=== PATIENT | female | born 1970 | race Hispanic/Latino ===

== ENCOUNTER 2024-01-06 09:40 | Observation (INO) | payer OTHER ==
[2024-01-06] MEDS ORDERED: ASPIRIN 81 MG CHEWABLE TABLET ONE (10:50)
[2024-01-06 10:58] LABS: Absolute Eosinophils 0.1 K/uL (0-0.5); Absolute Lymphocytes (CBC) 1.8 K/uL (0.7-4.9); Absolute Monocytes 0.5 K/uL (0.1-1.3); Absolute Neutrophil 3.5 K/uL (1.8-8.0); Basophils % 0.7 % (0-1.3); Eosinophils % 1.5 % (0-4.4); Hematocrit 41.4 % (36.0-45.0); Hemoglobin 13.9 g/dL (12.0-15.0); MCH 29.5 pg (27.0-35.0); MCHC 33.6 g/dL (32.0-36.0); MPV 8.4 fL (7.6-11.3); Monocytes % 7.9 % (3.3-12.3); Neutrophils % 59.9 % (41.7-73.7); Platelets 246 thou/uL (152-406); Red Cell Distribution Width 13.6 % (12.1-15.2)
--- NOTE | 2024-01-06 11:01 | RAD REPORT ---
EXAM DESCRIPTION: RAD - Chest Single View - 01/06/2024 10:52 am CLINICAL HISTORY: CHEST PAIN Chest pain. COMPARISON: No comparisons FINDINGS: Portable technique limits examination quality. The lungs are grossly clear. The heart is normal in size. No displaced fractures. IMPRESSION: No acute intrathoracic process suspected.
[2024-01-06 11:18] LABS: Albumin 3.7 g/dL (3.4-5.0); Albumin/Globulin Ratio 0.9 (1.1-1.8); Anion Gap 9.8 mEq/L (5.0-15.0); Bilirubin Direct 0.1 mg/dL (0-0.2); Bilirubin Indirect, Calculated 0.4 mg/dL (0.2-0.8); Bilirubin Total 0.5 mg/dL (0.2-1.0); Globulin 4.1 g/dL (2.3-3.5); Magnesium 2.4 mg/dL (1.6-2.4); Potassium 3.8 mEq/L (3.5-5.1); Protein, Total 7.8 g/dL (6.4-8.2)
--- NOTE | 2024-01-06 11:43 | ER ---
Nurse's Notes [facility] Name: Tanya Bradford Age: 53 yrs Sex: Female : 1970 Arrival Date: 01/06/2024 Time: 09:40 Bed 14 Private MD: Modesto Ramirez Diagnosis: Chest pain, unspecified Presentation: 01/05 09:59 Chief complaint: Patient states: L sided CP and SOB began yesterday. Coronavirus ll1 screen: Client denies travel out of the [place] in the last 14 days. difficulty breathing, shortness of breath, Client presents with at least one sign or symptom that may indicate coronavirus-19. Standard/surgical mask placed on the client. Ebola Screen: Patient denies travel to an Ebola-affected area in the 21 days before illness onset. Initial Sepsis Screen: Does the patient meet any 2 criteria? No. Patient's initial sepsis screen is negative. Does the patient have a suspected source of infection? No. Patient's initial sepsis screen is negative. Risk Assessment: Do you want to hurt yourself or someone else? Patient reports no desire to harm self or others. Onset of symptoms was January 05, 2024. 09:59 Method Of Arrival: Ambulatory ll1 09:59 Acuity: NAMRATA 3 ll1 Triage Assessment: 10:00 General: Appears uncomfortable, Behavior is calm, cooperative, appropriate for age. ll1 Pain: Complains of pain in L CP Pain currently is 9 out of 10 on a pain scale. Quality of pain is described as aching, pressure. Cardiovascular: Reports chest pain, shortness of breath. Respiratory: Reports shortness of breath. 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 - Infectious Disease History:: Denies. CDIFF, C. Auris, ESBL, MRSA (w/in 1 year), VRE (w/in 1 year), TB, . - Social history:: Smoking status: Patient denies any tobacco usage or history of. - History obtained from: son. Screenin:02 [facility] ED Fall Risk Assessment (Adult) History of falling in the last 3 months, cp4 including since admission No falls in past 3 months (0 pts) Confusion or Disorientation No (0 pts) Intoxicated or Sedated No (0 pts) Impaired Gait No (0 pts) Mobility Assist Device Used No (0 pt) Altered Elimination No (0 pt) Score/Fall Risk Level 0 - 2 = Low Risk. 15:35 Abuse screen: Denies threats or abuse. Nutritional screening: No deficits noted. cp4 Tuberculosis screening: No symptoms or risk factors identified. Assessment: 11:01 General: Appears uncomfortable, Behavior is calm, cooperative, appropriate for age. cp4 Pain: Pain does not radiate. Pain began. 11:02 Pain: Pain began 1 day ago. cp4 Vital Signs: 09:59 BP 146 / 87; Pulse 99; Resp 18; Temp 97.3; Pulse Ox 96% on R/A; Weight 65.32 kg; Height ll1 5 ft. 1 in. ; Pain 9/10; 11:00 BP 105 / 82; Pulse 90; Resp 18; Pulse Ox 95% ; cp4 12:00 BP 112 / 85; Pulse 92; Resp 18; Pulse Ox 97% ; cp4 13:00 BP 140 / 90; Pulse 97; Resp 18; Pulse Ox 95% ; ld1 14:00 BP 132 / 83; Pulse 97; Resp 18; Pulse Ox 95% ; cp4 09:59 Body Mass Index 27.21 (65.32 kg, 154.94 cm) ll1 09:59 Pain Scale: Adult ll1 ED Course: 09:42 Patient arrived in ED. rg4 09:42 Modesto Ramirez MD is Private Physician. rg4 09:43 Arm band placed on Patient placed in an exam room, on a stretcher. ll1 09:44 Joey Gordon is Attending Physician. ci 10:00 Triage completed. ll1 10:03 Janet Wan is Primary Nurse. cp4 10:30 Inserted saline lock: 22 gauge in right forearm, using aseptic technique. Blood ld1 collected. 10:33 D-Dimer Sent. cp4 10:34 Basic Metabolic Panel Sent. cp4 10:34 CBC with Diff Sent. cp4 10:34 LFT's Sent. cp4 10:34 Magnesium Sent. cp4 10:34 NT PRO-BNP Sent. cp4 10:34 Troponin HS Sent. cp4 10:54 XRAY Chest (1 view) In Process Unspecified. EDMS 11:42 Clint Cuevas MD is Hospitalizing Provider. ci 15:35 Placed in gown. Bed in low position. Call light in reach. Side rails up X2. Provided cp4 Education on: chest pain and admission. Client placed on continuous cardiac and pulse oximetry monitoring. NIBP monitoring applied. youth nutritional monitor on. 15:35 No provider procedures requiring assistance completed. Patient admitted, IV remains in cp4 place. O2 via room air. Administered Medications: 10:53 Drug: Aspirin PO Chewable Tablet 324 mg PO once; 81 mg tablets x 4 Route: PO; cp4 12:57 Follow up: Response: No adverse reaction cp4 Medication: 11:02 VIS not applicable for this client. cp4 Outcome: 11:43 Decision to Hospitalize by Provider. ci 15:35 Admitted to Tele accompanied by tech, via wheelchair, with chart, cp4 15:35 Condition: stable 15:35 Instructed on the need for admit, Demonstrated understanding of instructions, follow-up care, 15:38 Patient left the ED. cp4 Signatures: Dispatcher [employer] EDNE Katherine Valdovinos rg4 Luigi Peacock RN RN ll1 Keyonna Yeboah RN RN ld1 Janet Wan cp4 Joey Gordon ci Corrections: (The following items were deleted from the chart) 14:45 13:00 BP 132 / 83; Pulse 97bpm; Resp 18bpm; Pulse Ox 95%; ld1 ld1
--- NOTE | 2024-01-06 11:43 | EDPHYS ---
Physician Documentation [facility] Name: Tanya Bradford Age: 53 yrs Sex: Female : 1970 Arrival Date: 01/06/2024 Time: 09:40 Bed 14 Private MD: Modesto Ramirez ED Physician Joey Gordon HPI: 01/05 10:05 This 53 yrs old Female presents to ER via Ambulatory with complaints of Chest ci Pain, Shortness Of Breath. 10:05 Patient is a 53-year-old female with PMH hypertension, DM 2, hyperlipidemia who ci presents to the ED with chief complaint of left sided chest pain that began yesterday. Pain was initially intermittent but she woke up this morning and pain has been constant. Pain is stabbing, radiates into the left fingers worse when she takes a deep breath. Patient went to her primary care doctor's office yesterday and had a stress test and was told to go to the ER due to concerns of blockage in her heart but patient went home. Endorses shortness of breath. No associated diaphoresis, nausea/vomiting.. 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 - Infectious Disease History:: Denies. CDIFF, C. Auris, ESBL, MRSA (w/in 1 year), VRE (w/in 1 year), TB, . - Social history:: Smoking status: Patient denies any tobacco usage or history of. - History obtained from: son. ROS: 10:05 Constitutional: Negative for fever, chills, and weight loss, ci 10:05 Cardiovascular: Positive for chest pain, Negative for edema, orthopnea, palpitations, 10:05 Respiratory: Positive for shortness of breath, Negative for cough, dyspnea on exertion, wheezing, 10:05 Abdomen/GI: Negative for abdominal pain, nausea, vomiting, and diarrhea, Exam: 10:05 Constitutional: This is a well developed, well nourished patient who is awake, alert, ci and in no acute distress. Head/Face: Normocephalic, atraumatic. Eyes: Pupils equal round and reactive to light, extra-ocular motions intact. Lids and lashes normal. Conjunctiva and sclera are non-icteric and not injected. Cornea within normal limits. Periorbital areas with no swelling, redness, or edema. ENT: Nares patent. No nasal discharge, no septal abnormalities noted. Tympanic membranes are normal and external auditory canals are clear. Oropharynx with no redness, swelling, or masses, exudates, or evidence of obstruction, uvula midline. Mucous membranes moist. Neck: Trachea midline, no thyromegaly or masses palpated, and no cervical lymphadenopathy. Supple, full range of motion without nuchal rigidity, or vertebral point tenderness. No Meningismus. Chest/axilla: Normal chest wall appearance and motion. Nontender with no deformity. No lesions are appreciated. Cardiovascular: Regular rate and rhythm with a normal S1 and S2. No gallops, murmurs, or rubs. Normal PMI, no JVD. No pulse deficits. Respiratory: Lungs have equal breath sounds bilaterally, clear to auscultation and percussion. No rales, rhonchi or wheezes noted. No increased work of breathing, no retractions or nasal flaring. Abdomen/GI: Soft, non-tender, with normal bowel sounds. No distension or tympany. No guarding or rebound. No evidence of tenderness throughout. Back: No spinal tenderness. No costovertebral tenderness. Full range of motion. Skin: Warm, dry with normal turgor. Normal color with no rashes, no lesions, and no evidence of cellulitis. MS/ Extremity: Pulses equal, no cyanosis. Neurovascular intact. Full, normal range of motion. Neuro: Awake and alert, GCS 15, oriented to person, place, time, and situation. Cranial nerves II-XII grossly intact. Motor strength 5/5 in all extremities. Sensory grossly intact. Cerebellar exam normal. Normal gait. Psych: Awake, alert, with orientation to person, place and time. Behavior, mood, and affect are within normal limits. 10:05 ECG was reviewed by the Attending Physician. ci Vital Signs: 09:59 BP 146 / 87; Pulse 99; Resp 18; Temp 97.3; Pulse Ox 96% on R/A; Weight 65.32 kg; Height ll1 5 ft. 1 in. ; Pain 9/10; 11:00 BP 105 / 82; Pulse 90; Resp 18; Pulse Ox 95% ; cp4 12:00 BP 112 / 85; Pulse 92; Resp 18; Pulse Ox 97% ; cp4 13:00 BP 140 / 90; Pulse 97; Resp 18; Pulse Ox 95% ; ld1 14:00 BP 132 / 83; Pulse 97; Resp 18; Pulse Ox 95% ; cp4 09:59 Body Mass Index 27.21 (65.32 kg, 154.94 cm) ll1 09:59 Pain Scale: Adult ll1 MDM: 09:44 Patient medically screened. ci 10:12 HEART Score: History: Moderately Suspicious (1), ECG: Non specific repolarization ci disturbance / LBTB / PM (1), Age: > 45 and < 65 years (1), Risk Factors: > or = 3 Risk factors for atherosclerotic disease (2), [Hypercholesterolemia] [Hypertension] [DM] Troponin: < or = 1 x Normal Limit (0), Total Score = 4. The patient was given aspirin in the Emergency Department. Data reviewed: vital signs, nurses notes, old medical records. Historians other than the Patient: Daughter/Son: . Care significantly affected by the following chronic conditions: Diabetes, Hypertension. ED course: Patient presents for evaluation of chest pain x 1 day. Patient reportedly failed a stress test yesterday at PCPs office. Her chest pain is somewhat pleuritic, will check a dimer. Her EKG shows normal sinus rhythm with mild ST depression in lead I. Patient has no pulsatile neurodeficits, low suspicion for aortic dissection. She denies prolonged immobility, recent surgery but has had a blood clot 2 years ago.. 10:12 Differential diagnosis: abnormal EKG, acute myocardial infarction, coronary artery ci disease congestive heart failure costochondritis, gastroesophageal reflux disease (GERD), myocarditis, pneumonia, pneumothorax, pulmonary embolus, stable angina, unstable angina. 11:40 ED course: Labs reviewed, BNP 474, glucose 367, patient has no anion gap, bicarb within ci normal limit, low suspicion for DKA. High sensitive troponin negative however story concerning for cardiac chest pain. Will admit for further management. I discussed case with admitting physician who accepted patient for admission.. 01/05 10:05 Order name: Basic Metabolic Panel; Complete Time: 11:35 ci 01/05 10:05 Order name: CBC with Diff; Complete Time: 11:03 ci 01/05 10:05 Order name: LFT's; Complete Time: 11:35 ci 01/05 10:05 Order name: Magnesium; Complete Time: 11:35 ci 01/05 10:05 Order name: NT PRO-BNP; Complete Time: 11:35 ci 01/05 11:35 Interpretation: NT PRO-BNP 474. ci 01/05 10:05 Order name: Troponin HS; Complete Time: 11:35 ci 01/05 10:11 Order name: D-Dimer ci 01/05 12:02 Order name: Troponin High Sensitivity EDMS 01/05 12:02 Order name: Troponin High Sensitivity EDMS 01/05 12:02 Order name: Troponin High Sensitivity EDMS 01/05 10:05 Order name: XRAY Chest (1 view); Complete Time: 11:03 ci 01/05 10:11 Order name: EKG; Complete Time: 10:12 ci 01/05 10:05 Order name: Cardiac monitoring; Complete Time: 10:11 ci 01/05 10:05 Order name: EKG - Nurse/Tech; Complete Time: 10:11 ci 01/05 10:05 Order name: IV Saline Lock; Complete Time: 10:11 ci 01/05 10:05 Order name: Labs collected and sent; Complete Time: 10:33 ci 01/05 10:05 Order name: O2 Per Protocol; Complete Time: 10:12 ci 01/05 10:05 Order name: O2 Sat Monitoring; Complete Time: 10:13 ci EC:05 Rate is 97 beats/min. Rhythm is regular. QRS [place] is Normal. [place] interval is normal. ST ci Segment is depressed in lead I. Clinical impression: NSR w/ Non-specific ST/T Changes. Administered Medications: 10:53 Drug: Aspirin PO Chewable Tablet 324 mg PO once; 81 mg tablets x 4 Route: PO; cp4 12:57 Follow up: Response: No adverse reaction cp4 Disposition Summary: 01/06/24 11:43 Hospitalization Ordered Notes: Hospitalization Status: Observation ci Provider: Clint Cuevas Location: Telemetry/MedSurg (observation) ci Condition: Stable ci Problem: new ci Symptoms: are unchanged ci Bed/Room Type: Standard ci Room Assignment: 419(01/06/24 14:38) em1 Diagnosis - Chest pain, unspecified ci Forms: - Medication Reconciliation Form ci - SBAR form ci - Leadership Thank You Letter ci Signatures: Dispatcher [employer] EDMS Ulices Baptiste em1 Luigi Peacock, RN RN 1 Janet Wan cp4 Joey Gordon Corrections: (The following items were deleted from the chart) 10:05 10:05 Chest Single View+RAD.RAD.BRZ ordered. EDMS EDMS 10:14 10:12 Chest Single View+RAD.RAD.BRZ ordered. EDMS EDMS 13:56 11:43 ci em1 14:09 13:56 205 em1 em1 14:38 14:09 em1 em1
--- NOTE | 2024-01-06 15:24 | P.HP ---
Certification for Inpatient Patient admitted to: Observation With expected LOS: <2 Midnights Patient will require the following post-hospital care: None Practitioner: I am a practitioner with admitting privileges, knowledge of patient current condition, hospital course, and medical plan of care. Services: Services provided to patient in accordance with Admission requirements found in Title 42 Section 412.3 of the Code of Federal Regulations Patient History Date of Service: 01/06/24 Reason for admission: Chest pain, abnormal stress History of Present Illness: 53-year-old female with history of hypertension, gnx-qsongqz-yqhgyibby diabetes, hyperlipidemia and anxiety presents emergency department chief complaint of chest pain. She reports that she was seen by her primary care doctor yesterday on 01/04 and had an outpatient stress test which she was told was abnormal. She was instructed to come to the hospital for further evaluation. She was evaluated in the emergency department her initial high sensitive troponin was normal and her EKG was without STEMI criteria. Patient will be admitted under observation for ACS rule out. - Past Medical/Surgical History -: Hypertension -: Hyperlipidemia -: Diabetes mellitus type [id number]-xpmohiamb -: Anxiety -: Cholecystectomy Psychosocial/ Personal History: Is on disability, lives at home with her family - Family History Family History: Reviewed- Non-Contributory - Social History Alcohol use: No CD- Drugs: No Caffeine use: Yes Place of Residence: Home Review of Systems 10-point ROS is otherwise unremarkable Cardiovascular: Chest Pain, As per HPI Physical Examination - Physical Exam General: Alert, In no apparent distress, Oriented x3 HEENT: Atraumatic, PERRLA, EOMI Neck: Supple, 2+ carotid pulse no bruit, No LAD Respiratory: Clear to auscultation bilaterally, Normal air movement Cardiovascular: Regular rate/rhythm, Normal S1 S2 Gastrointestinal: Normal bowel sounds Musculoskeletal: No tenderness Integumentary: No rashes Neurological: Normal gait, Normal speech, Normal strength at 5/5 x4 extr, Normal tone - Studies Laboratory Data (last 24 hrs) 01/06/24 01/06/24 10:30 10:30 WBC 5.90 Hgb 13.9 Hct 41.4 Plt Count 246 Sodium 132 L Potassium 3.8 BUN 15 Creatinine 0.69 Glucose 367 H Magnesium 2.4 Total Bilirubin 0.5 AST 32 ALT 49 Alkaline Phosphatase 176 H Assessment and Plan - Plan Assessment: Chest pain rule out ACS-recent abnormal stress test Diabetes mellitus type 7tzs-meofhdl-zvivkpahv with hyperglycemia Hypertension Hyperlipidemia Anxiety Plan: Chest pain rule out ACS-recent abnormal stress test Cardiology consulted, notified N.p.o. after midnight Discussed with primary care doctor-reportedly had ST elevation in anterior leads during stress test Troponins negative thus far, will trend Monitor on telemetry Likely heart catheterization 01/06 Diabetes mellitus type [id number]-[id number]-xbcxkqfsr with hyperglycemia On metformin at home ACHS Accu-Chek, sliding insulin A1c in the morning Hypertension Hyperlipidemia Anxiety Continue home medications DVT PPX: Lovenox Code status: Full Discharge Plan: Home Plan to discharge in: 24 Hours - Advance Directives Does patient have a Living Will: No Does patient have a Durable POA for Healthcare: No - Code Status/Comfort Care Code Status Assessed: Yes (Full code) Critical Care: No Time Spent Managing Pts Care (In Minutes): 70
[2024-01-06] MEDS ORDERED: ONDANSETRON 4 MG/2 ML VIAL IV PRN (16:15)
[2024-01-06] MEDS: INSULIN REGULAR (HUMAN) 100 UNIT/ML SQ SCH (16:30)
[2024-01-06] MEDS: ENOXAPARIN 40 MG/0.4 ML SQ SCH (17:16)
[2024-01-06] MEDS: METOPROLOL XL 50 MG TAB PO SCH (17:16)
--- NOTE | 2024-01-06 18:46 | CON ---
Date of Consultation: 01/06/2024 Reason For Consultation: Chest pain and abnormal stress test. History Of Present Illness: 53-year-old female, history of hypertension, diabetes, dyslipidemia, pre sented with a complaint of chest pain, left-sided, pressure-like, radiates to the neck and left upper extremity, saw her primary care physician, had a stress test and she had significantly abnormal stre ss test. At the present time, there is no chest pain. Past Medical History: As outlined above in the HPI. Medications: Refer to reconciliation sheet for detailed list. Allergies: CODEINE AND ACETAMINOPHEN. Family History: No premature coronary artery disease or cancer. Social History: Does not smoke or drink. Does not use any drugs. Review of Systems: All systems reviewed and they were negative except as mentioned in HPI. Physical Examination: Vital Signs: Reviewed. Head and Neck: Pupils are equal, reactive to light. Intact eye movements. No JVD. No cervical lym phadenopathy. Neck is supple. Thyroid is not enlarged. Lungs: Clear to auscultation bilaterally. No rhonchi, wheezing, or crackles. No accessory muscles. Heart: Regular rate and rhythm. No extra sounds. Abdomen: Soft, nontender. Bowel sounds positive. No organomegaly. No masses or hernia. No rigidi ty or rebound. Extremities: No edema, clubbing, or cyanosis. Intact pulses. Skin: No rash or nodule. Neurologic: Alert, awake, oriented x3. No acute focal deficits appreciated. Investigations: BUN 15, creatinine 0.69, and troponins x4 were negative and hemoglobin is 13.9. Assessment And Recommendations: 1.Chest pain with abnormal stress test suggestive of unstable angina. Start baby aspirin. Keep NPO past midnight. Plan for coronary angiogram tomorrow. 2.Diabetes. Check sugars 3 times a day. Cover with the regular insulin per sliding scale. 3.Dyslipidemia. Recommend Lipitor to be continued at 40 mg q.h.s. 4.Hypertension. Blood pressure is controlled. SR/MODL Voice ID: [id number] Report ID: [id number]
[2024-01-06] MEDS: GABAPENTIN 300 MG CAP PO SCH (20:46)
[2024-01-06] MEDS: ATORVASTATIN 40 MG TAB PO SCH (20:46)
[2024-01-06] MEDS: AMITRIPTYLINE 25 MG TAB PO SCH (20:46)
[2024-01-06] MEDS: DOXEPIN HCL 10 MG CAP PO SCH (20:46)
[2024-01-07 04:14] LABS: Absolute Eosinophils 0.1 K/uL (0-0.5); Absolute Lymphocytes (CBC) 2.4 K/uL (0.7-4.9); Absolute Monocytes 0.7 K/uL (0.1-1.3); Absolute Neutrophil 2.2 K/uL (1.8-8.0); Basophils % 0.9 % (0-1.3); Eosinophils % 2.8 % (0-4.4); Hematocrit 38.7 % (36.0-45.0); Lymphocytes % 44.2 % (15.3-44.8); MCH 29.5 pg (27.0-35.0); MCHC 33.7 g/dL (32.0-36.0); MCV 87.5 fL (80-100); MPV 8.4 fL (7.6-11.3); Monocytes % 12.2 % (3.3-12.3); Neutrophils % 39.9 % (41.7-73.7); Platelets 230 thou/uL (152-406); RBC Red Blood Cell Count 4.43 M/uL (3.86-4.86); Red Cell Distribution Width 13.4 % (12.1-15.2)
[2024-01-07] MEDS: ASPIRIN EC 81 MG TAB PO ONE (04:29)
[2024-01-07] MEDS: ASPIRIN EC 81 MG TAB PO SCH (04:35)
[2024-01-07 04:38] LABS: Anion Gap 8.2 mEq/L (5.0-15.0); Potassium 3.2 mEq/L (3.5-5.1)
[2024-01-07] MEDS: PANTOPRAZOLE 40MG TABLET PO SCH (07:30)
[2024-01-07] MEDS: CLOPIDOGREL 75 MG TABLET PO SCH (08:29)
[2024-01-07] MEDS: POTASSIUM CL SA 10 MEQ TAB PO ONE (12:00)
--- NOTE | 2024-01-07 13:34 | P.PN ---
Date of Service: 01/07/24 Subjective: No further chest pain overnight no acute events overnight ROS: 10 point ROS as noted above, otherwise negative Physical exam GEN: Alert, oriented, NAD HEENT: Normal conjunctiva, sclera anicteric CV: Regular rate and rhythm, no edema Pulm: Nonlabored respirations on room air ABD: Soft, nontender, nondistended MSK: No joint tenderness Integumentary: No rashes Neuro: Normal speech, normal affect Vitals reviewed Assessment: Chest pain rule out ACS-recent abnormal stress test Diabetes mellitus type [id number]-flvtosy-evtskdycj with hyperglycemia Hypertension Hyperlipidemia Anxiety Plan: Chest pain rule out ACS-recent abnormal stress test Troponin trended negative/flat Heart cath today Discussed with primary care doctor-reportedly had ST elevation in anterior leads during stress test Monitor on telemetry await results from heart cath Diabetes mellitus type [id number]-kyziwyx-auerpghyp with hyperglycemia On metformin at home ACHS Accu-Chek, sliding insulin A1c 12.7 Further titration of antidiabetic agents by PCP Hypertension Hyperlipidemia Anxiety Continue home medications DVT PPX: Lovenox Code status: Punch Press Feeder Spent Managing Pts Care (In Minutes): 35
[2024-01-07] MEDS: NA CHLORIDE 0.9% 500 ML ONE (15:07)
[2024-01-07] MEDS ORDERED: MIDAZOLAM HCL 2 MG/2 ML INJ ONE (15:09)
[2024-01-07] MEDS ORDERED: FENTANYL CITR 100 MCG/2 ML ONE (15:09)
[2024-01-07] MEDS ORDERED: HEPA 1000U/500MLS 2,000 UNIT/1,000 ML BAG IV ONE (15:09)
[2024-01-07] MEDS ORDERED: LIDOCAINE 1% 20 ML MDV ONE (15:09)
[2024-01-07] MEDS ORDERED: VERAPAMIL HCL 10 MG/4 ML VIAL IV ONE (15:09)
[2024-01-07] MEDS ORDERED: CLOPIDOGREL 75 MG TABLET ONE (15:10)
[2024-01-07] MEDS ORDERED: HEPARIN 5000 UNIT/ML 1 ML VIAL ONE (15:10)
[2024-01-07] MEDS ORDERED: ATROPINE SULF 1 MG/10 ML SYR IV ONE (15:10)
[2024-01-07] MEDS ORDERED: HEPARIN 10,000 UNIT/10 ML VIAL IV ONE (15:10)
--- NOTE | 2024-01-07 17:49 | EKG ---
Test Date: 2024-01-06 Test Time: 09:52:38 Pot Filler: ILIAL MEASUREMENT RESULTS: Intervals: Rate: 97 RI: 120 QRSD: 80 QT: 350 QTc: 444 [place]: P: 54 RI: 120 QRS: 61 T: 54 INTERPRETIVE STATEMENTS: Normal sinus rhythm Normal ECG No previous ECG available for comparison Electronically Signed On 01-07-24 17:46:44 CDT by Israel Mulligan
[2024-01-07 20:15] VITALS: O2SAT 95
--- NOTE | 2024-01-07 20:57 | OP ---
Date of Procedure: 01/07/2024 Surgeon: JANIS ADLER Procedures Performed: 1.Selective coronary angiogram. 2.Left heart catheterization. 3.PCI of severe proximal to mid left circumflex stenosis, I used 2.25 x 38 mm Synergy drug-eluting s tent. Indication: Unstable angina. Access: Right femoral artery 6-Qatari closed with StarClose. Complications: None. Bleeding: Less than 50 mL. Anesthesia: Total sedation time was 1 hour. I used fentanyl and Versed. Description Of Procedure: After risks, benefits, and alternatives were explained, patient agreed to procedure and signed informed consent. The patient was brought into cardiac catheterization laborato , prepped and draped in the usual sterile fashion. Then, I tried to access right radial artery, bu t it was very small, so that access was abandoned. Then, I accessed the right common femoral artery using micropuncture kit, ultrasound guidance, fluoroscopy, placed 6-Qatari [place] sheath and took a 6-Qatari JL3 catheter into the aortic root, engaged the left main, took standard views, and exchange d for 6-Qatari 3DRC catheter, engaged the RCA, took standard views and the catheter was pushed over t he wire into the LV, measured the LVEDP. Pullback did not record any gradient. Then I removed the c atheter and exchanged for 6-Qatari EBU3.5 guide, engaged the left main, gave systemic heparin to assu re ACT level above 250, loaded with Plavix and aspirin and took a short Runthrough wire into the left circumflex, passing the area of stenosis and then using a 2.0 balloon, lesions were expanded very we ll and established good flow in the artery. Then, I placed a 2.25 x 38 mm Synergy drug-eluting stent across the long area of stenosis, excellent expansion, restoring excellent flow in the artery. Adwoa ent tolerated the procedure very well. Then, I removed the wire. Final angiogram was satisfactory. Then, I removed the guide and the sheath and the StarClose was used for closure with good hemostasis . Findings: 1.Left main; normal but small. 2.LAD; small vessel. She had normal proximal segment. In the mid segment, there are multiple areas ranging between 40% and 50%. Diagonal branches are very small with luminal irregularities. 3.Left circumflex; proximal to mid severe stenosis ranging between 90% to 99% on multiple locations, status post successful PCI as above. 4.RCA; it is dominant with proximal 50%, distal 50%, and diffuse 30% to 40% of the PLB and PDA. 5.Elevated LVEDP in the 25 mmHg range. Conclusions: 1.Severe left circumflex disease, which is the culprit for her symptoms, status post successful PCI. 2.Moderate coronary artery disease with diffusely small coronary arteries. Recommendations: Aspirin, Plavix, high-dose statin, and aggressive cardiac risk factor modification and diabetes control. SR/MODL Voice ID: [id number] Report ID: [id number]
--- NOTE | 2024-01-07 22:54 | PN ---
Date of Progress Note: 01/07/2024 Subjective: Seen by bedside. She continues to have chest pain with activities. No nausea, vomiting , diarrhea. No abdominal pain. No dysuria, polyuria, or urinary urgency. All other systems reviewe d, they are negative. Physical Examination: Vital Signs: Reviewed. Head and Neck: Pupils are equal, reactive to light. Intact eye movements. No JVD. No cervical lym phadenopathy. Neck is supple. Thyroid is not enlarged. Lungs: Clear to auscultation bilaterally. No rhonchi, wheezing, or crackles. No accessory muscle u se. Heart: Regular rate and rhythm. No extra sounds. Abdomen: Soft, nontender. Bowel sounds positive. No organomegaly. No masses or hernia. No rigidi ty or rebound. Extremities: No edema, clubbing, cyanosis. Intact pulses. Skin: No rash or nodule. Neuro: Alert, awake, oriented x3. No acute focal deficits appreciated. Investigations: Cardiac enzymes are negative. Assessment And Recommendation: 1.Unstable angina, status post coronary angiogram. Today, she had severe left circumflex stenosis, status post successful PCI. She has moderate coronary artery disease diffuse and small coronary [place]. Recommend aspirin and Plavix and high-dose statin. Aggressive cardiac risk factor modificatio n and good control of diabetes. 2.Diabetes. Check A1c and tight control of diabetes recommended. 3.Dyslipidemia. Continue with Lipitor 40 mg q.h.s. 4.Hypertension. Blood pressure is controlled. SR/MODL Voice ID: [id number] Report ID: [id number]
[2024-01-08 04:04] LABS: Absolute Lymphocytes (CBC) 1.5 K/uL (0.7-4.9); Absolute Monocytes 0.4 K/uL (0.1-1.3); Absolute Neutrophil 3.8 K/uL (1.8-8.0); Basophils % 0.6 % (0-1.3); Eosinophils % 0.3 % (0-4.4); Hematocrit 36.4 % (36.0-45.0); Hemoglobin 12.3 g/dL (12.0-15.0); Lymphocytes % 25.5 % (15.3-44.8); MCH 29.8 pg (27.0-35.0); MCHC 33.9 g/dL (32.0-36.0); MPV 8.1 fL (7.6-11.3); Neutrophils % 66.6 % (41.7-73.7); Nucleated Red Blood Cells % 0.1 % (0-0); Platelets 232 thou/uL (152-406); RBC Red Blood Cell Count 4.14 M/uL (3.86-4.86); Red Cell Distribution Width 13.3 % (12.1-15.2)
[2024-01-08 04:24] LABS: Anion Gap 8.7 mEq/L (5.0-15.0); Magnesium 2.2 mg/dL (1.6-2.4); Potassium 3.7 mEq/L (3.5-5.1)
[2024-01-08 08:36] VITALS: BMI 27.1
[2024-01-08 09:16] VITALS: BP 111/59; TEMP 96.8
--- NOTE | 2024-01-08 13:23 | P.DS ---
Admission Date: 01/06/24 Discharge Date: 01/08/24 Disposition: ROUTINE DISCHARGE Discharge Condition: GOOD Reason for Admission: Chest pain, abnormal stress Consultations: CardiologyDr. Mulligan Brief History of Present Illness: 53-year-old female with history of hypertension, ekn-houxtsa-tzujrcier diabetes, hyperlipidemia and anxiety presents emergency department chief complaint of chest pain. She reports that she was seen by her primary care doctor yesterday on 01/04 and had an outpatient stress test which she was told was abnormal. She was instructed to come to the hospital for further evaluation. She was evaluated in the emergency department her initial high sensitive troponin was normal and her EKG was without STEMI criteria. Patient will be admitted under observation for ACS rule out. Hospital Course: Assessment: CAD with severe left circumflex stenosis status post PCI Diabetes mellitus type 2com-nkoapzn-qdfqayjmx with hyperglycemia Hypertension Hyperlipidemia Anxiety Patient was admitted to the hospital after having an abnormal outpatient stress test. Heart catheterization was performed on 01/07/2024 with the following findings: Severe left circumflex disease status post PCI, moderate coronary artery disease elsewhere with diffusely small coronary arteries. Stent was placed to the left circumflex, cardiology recommends patient continue aspirin, Plavix, statin as well as her metoprolol at home. Additionally patient was hyperglycemic on admission with sugars in the 300s, A1c was obtained and was elevated at 12.7. Patient takes metformin 500 mg by mouth twice daily at home currently, she reported her PCP attempted to start her on insulin in the past but her insurance did not cover it and it would have cost her $1100 for prescription. Discussed options including initiating insulin now versus titrating up on her metformin and close follow-up with her PCP for further management/initiation of insulin. Patient wishes to proceed with increased dose of metformin at this time and close follow-up, prescription for metformin 850 mg by mouth twice daily sent to her pharmacy in [place]. Please follow-up closely with your PCP ideally within 1 week-we will likely need to be initiated on insulin given your elevated A1c of 12.7 Please also follow-up with cardiologyDr. Mulligan It is very important that you continue taking your aspirin, Plavix, atorvastatin and metoprolol at home. Vital Signs/Physical Exam: Temp Pulse Resp BP Pulse Ox 96.8 F 95 H 18 111/59 L 99 01/08/24 08:00 01/08/24 08:00 01/08/24 08:00 01/08/24 08:00 01/08/24 08:00 General: Alert, In no apparent distress, Oriented x3 HEENT: Atraumatic, PERRLA, EOMI Neck: Supple, JVD not distended Respiratory: Clear to auscultation bilaterally, Normal air movement Cardiovascular: Regular rate/rhythm, Normal S1 S2 Gastrointestinal: Normal bowel sounds, No tenderness Musculoskeletal: No tenderness Integumentary: No rashes Neurological: Normal speech, Normal tone Laboratory Data at Discharge: WBC 5.70 thou/uL (4.3-10.9) 01/08/24 03:47 Hgb 12.3 g/dL (12.0-15.0) 01/08/24 03:47 Hct 36.4 % (36.0-45.0) 01/08/24 03:47 Plt Count 232 thou/uL (152-406) 01/08/24 03:47 Sodium 132 mEq/L (136-145) L 01/08/24 03:47 Potassium 3.7 mEq/L (3.5-5.1) D 01/08/24 03:47 BUN 12 mg/dL (7-18) 01/08/24 03:47 Creatinine 0.49 mg/dL (0.55-1.02) L 01/08/24 03:47 Glucose 369 mg/dL (74-106) H 01/08/24 03:47 Magnesium 2.2 mg/dL (1.6-2.4) 01/08/24 03:47 Total Bilirubin 0.5 mg/dL (0.2-1.0) 01/06/24 10:30 AST 32 U/L (15-37) 01/06/24 10:30 ALT 49 U/L (13-56) 01/06/24 10:30 Alkaline Phosphatase 176 U/L (45-117) H 01/06/24 10:30 Triglycerides 174 mg/dL (<150) H 01/07/24 03:35 Cholesterol 159 mg/dL (<200) 01/07/24 03:35 HDL Cholesterol 48 mg/dL (40-60) 01/07/24 03:35 Cholesterol/HDL Ratio 3.31 01/07/24 03:35 Home Medications: Amitriptyline HCl 25 mg PO BEDTIME 01/07/24 Atorvastatin Calcium 40 mg PO BEDTIME 01/07/24 Clopidogrel Bisulfate [Plavix*] 75 mg PO DAILY 01/07/24 Doxepin HCl [Sinequan*] 10 mg PO BEDTIME 01/07/24 Gabapentin 300 mg PO BID 01/07/24 Losartan/Hydrochlorothiazide [Losartan-Hctz 50-12.5 mg Tab] 1 each PO DAILY 01/07/24 Metoprolol Succinate [Toprol Xl*] 50 mg PO DAILY 01/07/24 Pantoprazole [Protonix Tab*] 40 mg PO DAILY 01/07/24 Metformin HCl 850 mg PO BID #60 tab 01/08/24 New Medications: Metformin HCl 850 mg PO BID #60 tab Physician Discharge Instructions: Patient was admitted to the hospital after having an abnormal outpatient stress test. Heart catheterization was performed on 01/07/2024 with the following findings: Severe left circumflex disease status post PCI, moderate coronary artery disease elsewhere with diffusely small coronary arteries. Stent was placed to the left circumflex, cardiology recommends patient continue aspirin, Plavix, statin as well as her metoprolol at home. Additionally patient was hyperglycemic on admission with sugars in the 300s, A1c was obtained and was elevated at 12.7. Patient takes metformin 500 mg by mouth twice daily at home currently, she reported her PCP attempted to start her on insulin in the past but her insurance did not cover it and it would have cost her $1100 for prescription. Discussed options including initiating insulin now versus titrating up on her metformin and close follow-up with her PCP for further management/initiation of insulin. Patient wishes to proceed with increased dose of metformin at this time and close follow-up, prescription for metformin 850 mg by mouth twice daily sent to her pharmacy in [place]. Please follow-up closely with your PCP ideally within 1 week-we will likely need to be initiated on insulin given your elevated A1c of 12.7 Please also follow-up with cardiologyDr. Isaak It is very important that you continue taking your aspirin, Plavix, atorvastatin and metoprolol at home. Diet: ADA Activity: Ad denton Followup: Modesto Ramirez MD [Primary Care Provider] - 1 Week Israel Mulligan MD [ACTIVE - CAN ADMIT] - 1-2 Weeks Time spent managing pt's care (in minutes): 30
== END 2024-01-08 10:59 | disposition home or self-care (01) ==
LOC: ER 09:40 → ERHOLD 11:57 → 4TH 14:42
PROVIDERS: ADMIT Hospitalist; ATTEND Hospitalist
PROC: 4A023N7 Measurement of Cardiac Sampling and Pressure, Left Heart, Percutaneous Approach (ICD-10-PCS; principal; 2024-01-07)
PROC: B2111ZZ Fluoroscopy of Multiple Coronary Arteries using Low Osmolar Contrast (ICD-10-PCS; 2024-01-07)
DX: I25.110 Atherosclerotic heart disease of native coronary artery with unstable angina pectoris (principal); I10 Essential (primary) hypertension; E11.65 Type 2 diabetes mellitus with hyperglycemia; E78.5 Hyperlipidemia, unspecified; F41.9 Anxiety disorder, unspecified; Z79.84 Long term (current) use of oral hypoglycemic drugs; Z88.5 Allergy status to narcotic agent; Z90.49 Acquired absence of other specified parts of digestive tract
CPT/HCPCS: 93005; 85025 ×3; 80048 ×3; 36415 ×2; 83735 ×2; 80061; 82947 ×6; 85379; 80076; 85347 ×4; 83036; 84484 ×3; 83880; 71045; 93458; 76937; 99285; C1893; Q9967; C1725; C1760; C9600; J1815 ×2; J1644; J2001; J1650 ×2; J2250; J3010; G0378 ×6; J7040; 99152; 99153; J0461

== ENCOUNTER 2025-02-17 14:14 | Emergency (ER) | payer OTHER, SELFPAY ==
--- OUTSIDE RECORDS SUMMARY | 2025-02-17 14:18 | XMS REPORT | Continuity of Care Document ---
Author Name Unknown Address [address] [facility] [address] [place] [address] [facility] Address [address] [facility] 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 Name Role Phone MD CASTRO THORNTON Primary Care Physician [phone] CASTRO THORNTON Attending Clinician Unavailable MISTI RUIZ Attending Clinician UnavailARIANNA Ford Attending Clinician Unavailable ANGIE STRATTON Attending Clinician Unavailable KOBE BISHOP Attending Clinician Unavailable BRITTANY VEGA Attending Clinician Unav ailable ROSMERY VILLAR Attending Clinician Unavailab katelyn HEAD Attending Clinician Unavailable MANDY GRACE Attending Clinician Unavailable CAPRI MIKE Attending Clinician UnavailDEVON Izquierdo Attending Clinician Unavailable CONRAD FUNES Attending Clinician Unavailable ALVARADO CONLEY Attending Clinician Unavailab VIKY Sawyer Attending Clinician Unavailable KEVIN ALATORRE Attending Clinician Unavailable RENÉ GUNDERSON Attending Clinician Unavailable LNIDA EUBANKS Attending Clinician Unavailable SOURAV NICHOLSON Attending Clinician Unavailpreethi KWAN PHYSICIAN, . Attending Clinician Unavailable MOUSTAPHA DIMAS Attending Clinician Unavailable BRITTANY VEGA Admitting Clinician Unav ailaarti HEAD Admitting Clinician Unavailable MANDY GRACE Admitting Clinician Unavailable Payers Payer Name Policy Type Policy Number Effective Date Expirati on Date Source [employer] HMO/PLUS [id number] 2021 00:00:00 Problems Condition Name Condition Details Condition Category Status Onset Date Resolution Date Last Treatment Date Treating Clinician Comments Source UTERINE MASS WITH POSS THROMBUS UTERINE MASS WITH POSS THROMBUS Active 07/01/2022 [facility] Diagnosis Active 2021-09 0-04 00:00: 00 2022-07-09 18:32:00 Felicia Lee Uterine leiomyoma (disorder) Uterine leiomyoma (disorder) Active Problem 07/07/2022 [facility] Problem Active 2022-07-07 08:08:05 Felicia Lee Abdominal pain Problem [facility] Abrasion of abdominal wall [facility] Pneumonia due to severe acute respirator y syndrome coronaviru s 2 (SARS-CoV- 2) Problem [facility] Nonspecifi c chest pain Problem [facility] Superficia l bruising Problem [facility] Current use of anticoagul ant therapy Problem [facility] Elevated liver enzymes Problem [facility] Fracture of proximal phalanx of digit of left hand Problem [facility] Hyperglyce lorna without ketosis Problem [facility] Hypertensi on Problem [facility] Hypoxemia Problem [facility] Left ear pain Problem [facility] Left otitis media Problem [facility] Pain of right leg Problem [facility] Disorder of uterus Problem [facility] Congenital anomaly of ovary Problem [facility] Sprain Problem [facility] Urinary tract infection Problem [facility] Uterus problem Problem [facility] Herpes zoster Problem [facility] Fall Problem [facility] Contusion of forehead Problem [facility] Pain of right upper extremity Problem [facility] Allergies, Adverse Reactions, Alerts Allergy Name Allergy Type Status Severity Reaction(s) Onset Date Inactive Date Treating Clinician Comments Source Acetamin ophen ([id number] [id number]) Allergy to substanc e Active Moderate Rash 02-04 00:00: 00 [facility] Codeine ([id number]) Allergy to substanc e Active Moderate Rash 02-04 00:00: 00 [facility] [place] Active [facility] Social History Social Habit Start Date Stop Date Quantity Comments Source History of tobacco use [facility] Social History 2022-07-02 05:13:31 2022-07-02 05:13:31 [facility] Smoking Status Start Date Stop Date Source Ex-smoker (finding) 2022-07-01 08:36:00 2022-07-01 08: 36:00 [facility] Medications Ordered Medication Name Filled Medication Name Start Date Stop Date Current Medication? Ordering Clinician Indication Dosage Frequency Signature (SIG) Comments Components Source Tramadol Hcl (Ultram *) 50 Mg TAB Tramadol Hcl (Ultram *) 50 Mg TAB 2023-09 14:05: 00 Yes 50 [facility] Valacyclovi r Hcl (Valtrex 1 Gm*) 1 Gm TAB Valacyclovi r Hcl (Valtrex 1 Gm*) 1 Gm TAB 2023-09 14:04: 00 Yes 1 Arun Lowe [facility] gabapentin 300 mg oral capsule 2021-09 20:39: 00 Yes 300 mg = 1 cap, PO, BID, PRN Pain Score 1-3, # 60 cap, 1 Refill(s), Pharmacy: [facility] #[id number], 152.4, cm, 07/02/22 0:05:00 CDT, Height, 62.818, kg, 07/02/22 0:05:00 CDT, Weight Jmoria donovan Lee Eliquis 5 mg oral tablet 2021-09 20:38: 00 Yes 10 mg, PO, Q12H, For Deep Venous Thrombosis / Pulmonary Embolism, # 14 tab, 0 Refill(s), Pharmacy: [facility] #[id number], Loading Dose x7 day, 152.4, cm, 07/02/22 0:05:00 CDT, Height, 62.818, kg, 07/02/22 0:05:00 CDT, Weight [facility] Motrin 800 mg oral tablet 2021-09 20:30: 00 Yes 800 mg = 1 tab, PO, Q8H, PRN Pain, Take with food, # 30 tab, 0 Refill(s), Pharmacy: [id number], 152.4, cm, 07/02/22 0:05:00 CDT, Height, 62.818, kg, 07/02/22 0:05:00 CDT, Weight Memoria donovan Lee Robaxin 500 mg oral tablet 2021-09 20:30: 00 Yes 500 mg = 1 tab, PO, Q8H, PRN Spasms, X 20 day, # 60 tab, 0 Refill(s), Pharmacy: [facility] #[id number], 152.4, cm, 07/02/22 0:05:00 CDT, Height, 62.818, kg, 07/02/22 0:05:00 CDT, Weight Jmoria donovan Lee oxyCODONE 5 mg oral tablet, immediate release 2021-09 20:01: 00 Yes 5 mg = 1 tab, PO, Q6H, PRN Pain Score 7-10, # 30 tab, 0 Refill(s), Pharmacy: [facility] #[id number], 152.4, cm, 07/02/22 0:05:00 CDT, Height, 62.818, kg, 07/02/22 0:05:00 CDT, Weight Felicia Lee fentaNYL 2021-09 16:21: 00 Yes Notes: (Same as: Sublimaze) Preservati ve free. Felicia Hajiann fentaNYL 2021-09 0 15:44: 00 No 50 microgram, Route: IV, ONCE, Dosing Weight 62.818, kg, Start date: 07/04/22 10:44:00 CDT, Stop date: 07/04/22 10:44:00 CDT Felicia Lee midazolam 2021-09 15:44: 00 No 1 mg, Route: IV, ONCE, Dosing Weight 62.818, kg, Start date: 07/04/22 10:44:00 CDT, Stop date: 07/04/22 10:44:00 CDT Felicia Lee lidocaine 1% 2021-09 15:44: 00 No 200 mg, Route: INTRADERM, Dosing Weight 62.818, kg, ONCE, Start date: 07/04/22 10:44:00 CDT, Stop date: 07/04/22 10:44:00 CDT Jmshemar donovan Lee senna 2021-09 006 02:00: 00 No Notes: (Same as: Priti) Jmshemar donovan Lee Omnipaque 350 mg/mL 2021-09 14:07: 00 No 100 mL, Route: IVP, Drug Form: SOLN, Dosing Weight 62.818, kg, ONCALL, STAT, Start date: 07/02/22 9:07:00 CDT, Duration: 1 doses or times, Dose = 2.2ml/kg, Max dose = 100ml -- "To be infused by Radiology Staff ONLY" Felicia Lee amLODIPine 2021-09 14:00: 00 No Notes: (Same as: Norvasc) Feilcia Lee docusate 2021-09 14:00: 00 No Notes: (Same as: Colace) (Do Not Crush) Felicia Hajiann lisinopril 2021-09 14:00: 00 No 10 mg, Route: PO, Drug form: TAB, Daily, Dosing Weight 62.818, kg, Start date: 07/02/22 9:00:00 CDT, Duration: 30 day, Stop date: 07/31/22 9:00:00 CDT Felicia donovan Lee metFORMIN 500 mg oral tablet 2021-09 14:00: 00 No 500 mg, Route: PO, Drug form: TAB, BID, Dosing Weight 62.818, kg, Start date: 07/02/22 9:00:00 CDT, Duration: 30 day, Stop date: 07/31/22 17:00:00 CDT Jmshemar donovan Lee potassium phosphate 2021-09 11:47: 00 No Notes: (Same as: K Phosphate) Infuse over 4 hour. Do not infuse phosphorou s concurrent ly in the same line as TPN or IVF that contains calcium. For double lumen central lines, phosphorou s may be infused in a separate lumen from TPN. Felicia Lee Lovenox 2021-09 06:00: 00 No Notes: (Same as: Lovenox) Felicia Lee oxyCODONE immediate release 2021-09 05:08: 00 No Notes: (Same as: Roxicodone ) Felicia Lee ibuprofen 2021-0905 05:08: 00 No Notes: (Same as: Motrin) "Do Not Crush" Take with food. Felicia Lee Lactated Ringers IV 1,000 mL 2021-09 05:07: 00 No 1,000 mL, Rate: 100 ml/hr, Infuse over: 10 hr, Route: IV, Total Volume: 1,000, Start date: 07/02/22 0:07:00 CDT, Duration: 30 day, Stop date: 08/01/22 0:06:00 CDT, 0 Felicia Lee Dextrose 50% Syringe (D50W) 2021-09 03:46: 00 No 12.5 gm, 25 mL, Route: IVP, Drug Form: INJ, kg, PRN, PRN Blood Glucose Results, Start date: 07/01/22 22:46:00 CDT, Duration: 30 day, Stop date: 07/31/22 22:45:00 CDT, 0 Felicia Lee glucagon 2021-09 0-05 03:46: 00 No 1 mg, Route: IM, Drug form: PDR/INJ, PRN, kg, PRN Blood Glucose Results, Start date: 07/01/22 22:46:00 CDT, Duration: 30 day, Stop date: 07/31/22 22:45:00 CDT, 0 Felicia Lee ondansetron 2021-09 0-05 03:46: 00 No Notes: (Same as: Na) MEDICATION WASTE Product Size: 4 mg Product Wasted: 0 mg Felicia Lee acetaminoph en 2021-09 005 03:46: 00 No Notes: Do not exceed 4 gm/day. (Same as: Tylenol) Felicia Lee Albuterol (Ventolin Hfa *) 90 Mcg/Act INH Albuterol (Ventolin Hfa *) 90 Mcg/Act INH 02-08 12:44: 00 Yes 2 [facility] Benzonatate (Tessalon *) 100 Mg CAP Benzonatate (Tessalon *) 100 Mg CAP 02-08 12:44: 00 Yes 100 [facility] Prednisone (Prednisone *) 20 Mg TAB Prednisone (Prednisone *) 20 Mg TAB 02-08 12:43: 00 Yes 20 [facility] Anxiety Pill Anxiety Pill 02-04 13:00: 00 Yes [facility] Metformin Hcl (Glucophage *) 500 Mg TAB Metformin Hcl (Glucophage *) 500 Mg TAB 02-04 13:00: 00 Yes 500 [facility] Small Sugar Pill Small Sugar Pill 02-04 13:00: 00 [facility] Sugar Pill Sugar Pill 02-04 13:00: 00 Yes [facility] Azithromyci n (Zithromax Z-Sandro *) 250 Mg TAB Azithromyci n (Zithromax Z-Sandro *) 250 Mg TAB 01-29 00:34: 00 Yes 1 [facility] Amlodipine Besylate (Norvasc *) 10 Mg TAB Amlodipine Besylate (Norvasc *) 10 Mg TAB 11-27 03:17: 00 Yes 10 [facility] Amoxicillin (Amoxil *) 875 Mg TAB Amoxicillin (Amoxil *) 875 Mg TAB 11-27 03:17: 00 02-08 12:43 :00 No 1 [facility] Ibuprofen (Motrin *) 600 Mg TAB Ibuprofen (Motrin *) 600 Mg TAB 11-27 03:17: 00 02-08 12:43 :00 No 1 [facility] Vital Signs Vital Name Observation Time Observation Value Comments S ource Height 2024-10-21 18:03:00 154.107151 cm [facility] Weight 2024-10-21 18:03:00 64.125694 kg [facility] BMI (Body Mass Index) 2024-10-21 18:03:00 26.8 kg/m2 [facility] Height 2024-07-30 13:45:00 154.637488 cm [facility] Weight 2024-07-30 13:45:00 71.873863 kg [facility] BMI (Body Mass Index) 2024-07-30 13:45:00 29.7 kg/m2 [facility] Heart Rate 2022-07-04 20:09:13 [facility] Systolic (mm Hg) 2022-07-04 20:08:57 [facility] Diastolic (mm Hg) 2022-07-04 20:08:57 [facility] [place] Heart Rate 2022-07-04 20:08:57 [facility] Temperature Oral (F) 2022-07-04 20:08:35 98 F [facility] Respitory Rate 2022-07-04 20:08:00 [facility] [place] Respitory Rate 2022-07-04 19:15:00 [facility] [place] Systolic (mm Hg) 2022-07-04 19:15:00 [facility] [place] Diastolic (mm Hg) 2022-07-04 19:15:00 [facility] Respitory Rate 2022-07-04 19:00:00 [facility] [place] Systolic (mm Hg) 2022-07-04 19:00:00 [facility] Diastolic (mm Hg) 2022-07-04 19:00:00 [facility] Heart Rate 2022-07-04 14:15:00 [facility] Temperature Oral (F) 2022-07-04 12:40:55 98.3 F [facility] Temperature Oral (F) 2022-07-04 08:43:42 98.7 F [facility] Height 2022-07-02 05:05:00 152.4 cm [facility] Weight 2022-07-02 05:05:00 [facility] BMI Calculated 2022-07-02 05:05:00 [facility] Procedures Procedure Date / Time Performed Performing Clinicia n Source Biopsy, pleura, percutaneous needle 2022-07-04 16:46:07 [facility] Encounters Start Date/Time End Date/Time Encounter Type Admission Type Attending Clinicians Care Facility Care Department Encounter ID Source 2024-11-23 16:00:00 Inpatient CASTRO CHAU [facility] [id number] [facility] 2022-07-04 11:20:42 Outpatient [facility] [id number] [facility] 2022-07-03 15:07:30 Outpatient [facility] [id number] [facility] 2024-10-21 17:39:00 2024-10-21 19:37:00 Emergency ER MISTI RUIZ [facility] [id number] [facility] 2024-10-21 17:39:00 2024-10-21 19:37:00 Departed Emergency Room [facility] [id number] [facility] 2024-07-30 13:38:00 2024-07-30 14:22:00 Emergency ER ARIANNA GARCIA [facility] [id number] [facility] 2024-07-30 13:38:00 2024-07-30 14:22:00 Departed Emergency Room [facility] [id number] [facility] 2024-07-14 09:15:00 2024-07-14 09:15:00 Outpatient NEIL STRTATON ANGIE [facility] [id number] [facility] 2024-07-14 09:15:00 2024-07-14 09:15:00 Registered Clinic [facility] [id number] [facility] 2024-01-29 10:55:00 2024-01-29 13:05:00 Emergency ER MISTI RUIZ [facility] [id number] [facility] 2023-12-10 11:25:00 2023-12-10 11:25:00 Outpatient CASTRO CHAU [facility] [id number] [facility] 2023-09-04 09:25:00 2023-09-04 09:25:00 Outpatient CASTRO CHAU [facility] [id number] [facility] 2023-07-09 10:26:00 2023-07-09 10:26:00 Outpatient CASTRO CHAU [facility] [id number] [facility] 2022-07-14 14:30:00 2022-07-14 14:30:00 Outpatient KOBE BISHOP [facility] [id number] [facility] 2022-07-01 19:21:00 2022-07-04 20:40:00 Inpatient BRITTANY ALEJO [facility] [id number] [facility] 2022-07-01 08:18:00 2022-07-01 17:38:00 Emergency ER ROSMERY VILLAR [facility] [id number] [facility] 2022-07-01 08:18:00 2022-07-01 17:38:00 emergency [id number] 2022-05-01 00:00:00 2022-05-01 00:00:00 [id number] [facility] 2021-02-04 05:02:00 2021-02-08 17:37:00 Inpatient ER [facility]ACE [facility] [id number] [facility] 2021-01-28 22:08:00 2021-01-29 00:49:00 Emergency ER CAPRI MIKE [facility] [id number] [facility] 2019-11-28 01:46:00 2019-11-28 03:21:00 Emergency ER LEANNA DEVON [facility] [id number] [facility] 2018-11-14 13:44:00 2018-11-14 15:42:00 Emergency ER CONRAD FUNES [facility] [id number] [facility] 2017-12-11 13:13:00 2017-12-11 13:49:00 Emergency ER ALVARADO CONLEY [facility] [id number] [facility] 2015-05-30 22:14:00 2015-05-31 00:15:00 Emergency ER VIKY COLE [facility] [id number] [facility] 2014-07-18 22:45:00 2014-07-19 00:28:00 Emergency ER KEVIN ALATORRE [facility] [id number] [facility] 2014-02-06 18:38:00 2014-02-06 22:41:00 Emergency ER KEVIN ALATORRE [facility] [id number] [facility] 2013-05-02 19:22:00 2013-05-02 20:03:00 Emergency ER RENÉ GUNDERSON [facility] [id number] [facility] 2012-05-19 17:18:00 2012-05-19 21:29:00 Emergency ER LINDA EUBANKS [facility] [id number] [facility] 2011-09-10 19:20:00 2011-09-10 22:55:00 Emergency ER RENÉ GUNDERSON [facility] [id number] [facility] 2007-07-07 17:23:00 2007-07-07 20:00:00 Emergency ER SOURAV NICHOLSON [facility] [id number] [facility] 2007-02-02 11:56:00 2007-02-02 11:56:00 Outpatient ER NO PHYSICIAN, . [facility] [id number] [facility] 2006-08-12 13:56:00 2006-08-12 13:56:00 Outpatient NO PHYSICIAN, . [facility] [id number] [facility] 2004-10-06 22:48:00 2004-10-07 00:55:00 Emergency ER MOUSTAPHA DIMAS [facility] [id number] [facility] Results Test Description Test Time Test Comments Results Result Co mments Source [id number] 10:05:00* Test Item Value Reference Range Interpretation Comme nts PTT (test code = PTT) 28.6 s 22.9-35.8 PT (test code = PT) 11.8 s 12.0-14.7 INR (test code = INR) 0.87 1 0.85-1.17 Segs (test code = Segs) 48.1 45.0-75.0 Lymphocytes (test code = Lymphocytes) 40.9 20.0-40.0 Monocytes (test code = Monocytes) 7.0 2.0-12.0 Eosinophils (test code = Eosinophils) 3.2 <=4.0 Basophils (test code = Basophils) 0.8 <=1.0 Neutrophils # (test code = Neutrophils #) 2.2 1.5-8.1 Lymphocytes # (test code = Lymphocytes #) 1.8 1.0-5.5 Monocytes # (test code = Monocytes #) 0.3 <=0.8 Eosinophils # (test code = Eosinophils #) 0.1 <=0.5 WBC (test code = WBC) 4.5 3.7-10.4 RBC (test code = RBC) 4.28 4.20-5.40 Hgb (test code = Hgb) 12.8 12.0-16.0 Hct (test code = Hct) 38.7 36.0-48.0 MCV (test code = MCV) 90.4 80.0-98.0 MCH (test code = MCH) 29.8 pg 27.0-31.0 MCHC (test code = MCHC) 32.9 32.0-36.0 RDW (test code = RDW) 14.7 11.5-14.5 Platelet (test code = Platelet) 179 133-450 MPV (test code = MPV) 8.9 7.4-10.4 [facility]2022-10-06 20:20:00* Test Item Value Reference Range Interpretation Comme nts Glucose Lvl (test code = Glucose Lvl) 126 70-99 BUN (test code = BUN) 5 7-22 Creatinine Lvl (test code = Creatinine Lvl) 0.43 0.50-1.40 Sodium Lvl (test code = Sodium Lvl) 136 135-145 Potassium Lvl (test code = P otassium Lvl) 3.8 3.5-5.1 Chloride Lvl (test code = Chloride Lvl) 104 95-109 CO2 (test code = CO2) 26 24-32 Calcium Lvl (test code = Calcium Lvl) 9.3 8.5-10.5 Total Protein (test code = T otal Protein) 7.0 6.4-8.4 Albumin Lvl (test code = Albumin Lvl) 3.3 3.5-5.0 ALT (test code = ALT) 16 <=65 AST (test code = AST) 17 <=37 Alk Phos (test code = Alk Phos) 70 39-136 Bili Total (test code = Bili Total) 0.8 0.2-1.3 AGAP (test code = AGAP) 9.8 10.0-20.0 B/C Ratio (test code = B/C Ratio) 12 1 6-25 Globulin (test code = Globulin) 3.7 2.7-4.2 A/G Ratio (test code = A/G Ratio) 0.9 1 0.7-1.6 eGFR (test code = eGFR) 118 Magnesium Lvl (test code = M agnesium Lvl) 2.3 1.8-2.4 Phosphorus (test code = Phosphorus) 2.5 2.5-4.5 [id number] 20:20:00* Test Item Value Reference Range Interpretation Comme nts WBC (test code = WBC) 4.9 3.7-10.4 RBC (test code = RBC) 4.45 4.20-5.40 Hgb (test code = Hgb) 13.2 12.0-16.0 Hct (test code = Hct) 38.8 36.0-48.0 MCV (test code = MCV) 87.3 80.0-98.0 MCH (test code = MCH) 29.8 pg 27.0-31.0 MCHC (test code = MCHC) 34.1 32.0-36.0 RDW (test code = RDW) 14.1 11.5-14.5 Platelet (test code = Platelet) 204 133-450 MPV (test code = MPV) 8.3 7.4-10.4 Segs (test code = Segs) 46.1 45.0-75.0 Lymphocytes (test code = Lymphocytes) 43.1 20.0-40.0 Monocytes (test code = Monocytes) 7.1 2.0-12.0 Eosinophils (test code = Eosinophils) 3.1 <=4.0 Basophils (test code = Basophils) 0.6 <=1.0 Neutrophils # (test code = Neutrophils #) 2.3 1.5-8.1 Lymphocytes # (test code = Lymphocytes #) 2.1 1.0-5.5 Monocytes # (test code = Monocytes #) 0.4 <=0.8 Eosinophils # (test code = Eosinophils #) 0.2 <=0.5 [id number] 09:55:00* Test Item Value Reference Range Interpretation Comme nts PT (test code = PT) 12.1 s 12.0-14.7 INR (test code = INR) 0.90 1 0.85-1.17 PTT (test code = PTT) 28.7 s 22.9-35.8 Fibrinogen Lvl (test code = Fibrinogen Lvl) 424 230-510 [id number] 12:52:00* Test Item Value Reference Range Interpretation Comme nts PT (test code = PT) 12.6 s 12.0-14.7 INR (test code = INR) 0.95 1 0.85-1.17 PTT (test code = PTT) 33.5 s 22.9-35.8 Fibrinogen Lvl (test code = Fibrinogen Lvl) 536 230-510 [facility] [id number] 07:10:00* Test Item Value Reference Range Interpretation Comme nts CA 125 (test code = CA 125) 6.3 <=35.0 [facility] AND [id number] 04:54:00* Test Item Value Reference Range Interpretation Comme nts UA Color (test code = UA Color) Yellow *NA*(07/01/22 11:54 PM) UA Turbidity (test code = UA Turbidity) Clear (07/01/22 11:54 PM) UA Spec Grav (test code = UA Spec Grav) 1.020 1 UA pH (test code = UA pH) 6.0 1 5.0-8.0 UA Protein (test code = UA Protein) Negative (07/01/22 11:54 PM) UA Glucose (test code = UA Glucose) >=1000 mg/dL UA Ketones (test code = UA Ketones) >=80 mg/dL UA Bili (test code = UA Bili) Small *ABN*(07/01/22 11:54 PM) UA Blood (test code = UA Blood) Negative (07/01/22 11:54 PM) UA Urobilinogen (test code = UA Urobilinogen) 0.2 0.1-1.0 UA Nitrite (test code = UA Nitrite) Negative (07/01/22 11:54 PM) UA Leuk Est (test code = UA Leuk Est) Negative (07/01/22 11:54 PM) Micro? (test code = Micro?) Performed (07/01/22 11:54 PM) UA Sq Epi (test code = UA Sq Epi) Occasional *NA*(07/01/22 11:54 PM) UA WBC (test code = UA WBC) 2 <=5 UA RBC (test code = UA RBC) 1 <=2 UA Mucus (test code = UA Mucus) Few /LPF [id number] 04:25:00* Test Item Value Reference Range Interpretation Comme nts Coronavirus (COVID-19) HINA (test code = Coronavirus (COVID-19) HINA) Not Detected (07/01/22 11:25 PM) [facility] [id number] 04:25:00* Test Item Value Reference Range Interpretation Comme nts Glucose Lvl (test code = Glucose Lvl) 186 70-99 BUN (test code = BUN) 10 7-22 Creatinine Lvl (test code = Creatinine Lvl) 0.54 0.50-1.40 Sodium Lvl (test code = Sodium Lvl) 135 135-145 Potassium Lvl (test code = P otassium Lvl) 3.8 3.5-5.1 Chloride Lvl (test code = Chloride Lvl) 103 95-109 CO2 (test code = CO2) 25 24-32 Calcium Lvl (test code = Calcium Lvl) 8.8 8.5-10.5 Total Protein (test code = T otal Protein) 7.1 6.4-8.4 Albumin Lvl (test code = Albumin Lvl) 3.5 3.5-5.0 ALT (test code = ALT) 17 <=65 AST (test code = AST) 16 <=37 Alk Phos (test code = Alk Phos) 77 39-136 Bili Total (test code = Bili Total) 0.4 0.2-1.3 AGAP (test code = AGAP) 10.8 10.0-20.0 B/C Ratio (test code = B/C Ratio) 19 1 6-25 Globulin (test code = Globulin) 3.6 2.7-4.2 A/G Ratio (test code = A/G Ratio) 1.0 1 0.7-1.6 eGFR (test code = eGFR) 112 Magnesium Lvl (test code = M agnesium Lvl) 2.4 1.8-2.4 Phosphorus (test code = Phosphorus) 2.6 2.5-4.5 [id number] 04:25:00* Test Item Value Reference Range Interpretation Comme nts WBC (test code = WBC) 5.7 3.7-10.4 RBC (test code = RBC) 4.62 4.20-5.40 Hgb (test code = Hgb) 13.6 12.0-16.0 Hct (test code = Hct) 40.6 36.0-48.0 MCV (test code = MCV) 87.8 80.0-98.0 MCH (test code = MCH) 29.5 pg 27.0-31.0 MCHC (test code = MCHC) 33.6 32.0-36.0 RDW (test code = RDW) 14.6 11.5-14.5 Platelet (test code = Platelet) 204 133-450 MPV (test code = MPV) 8.1 7.4-10.4 Segs (test code = Segs) 47.7 45.0-75.0 Lymphocytes (test code = Lymphocytes) 43.4 20.0-40.0 Monocytes (test code = Monocytes) 6.1 2.0-12.0 Eosinophils (test code = Eosinophils) 2.2 <=4.0 Basophils (test code = Basophils) 0.6 <=1.0 Neutrophils # (test code = Neutrophils #) 2.7 1.5-8.1 Lymphocytes # (test code = Lymphocytes #) 2.5 1.0-5.5 Monocytes # (test code = Monocytes #) 0.4 <=0.8 Eosinophils # (test code = Eosinophils #) 0.1 <=0.5 [facility] Notes <thead> Date/Time Note Provider Source [facility]2025-01-24 20:10:56 THANK YOU FOR CHOOSING US FOR YOUR MEDICAL CARE AND IT WAS A PLEASURE TO TAKE CARE OF YOU: CASANDRA FIORE, MSN, HOME HOUSEKEEPER, ASSISTANT PRODUCE MANAGER-BC DIAGNOSIS: FALL, FOREHEAD CONTUSION, PAIN OF RIGHT UPPER EXTREMITY PRESCRIPTION: NONE FOLLOW UP: PRIMARY CARE IN 2 DAYS *RETURN TO ER FOR WORSENING OF SYMPTOMS* INSTRUCTIONS: PLENTY OF FLUIDS TYLENOL AND IBUPROFEN NEEDED STRETCHING EXERCISES MASSAGE OR WARM BATH /SHOWER WARM COMPRESSES AND ICE PACKS GOOD INFECTION CONTROL - SUCH HANDWASHING Future Tests Future scheduled test information is unavailable Pending Tests Pending diagnostic test information is unavailable Future Visits Future appointment information is unavailable Referrals to Other Providers <thead> Reason for Referral Referral Start Date Provider Provider Contact Information Provider Address NO PHYSICIAN NO PHYSICIAN CASTRO THORNTON MD Work Phone: [employer] CASTRO [facility]man [address] [place] [address] CASTRO THORNTON MD Work Phone: [facility] CASTRO Thurman [address] [place] [address] CASTRO THORNTON MD Work Phone: [facility] CASTRO Thurman [address] [place] [address] CASTRO THORNTON MD Work Phone: [facility] CASTRO Thurman [address] [place] [address] CASTRO THORNTON MD Work Phone: [facility] CASTRO Thurman [address] [place] [address] NO PHYSICIAN NO PHYSICIAN NO PHYSICIAN NO PHYSICIAN NO PHYSICIAN Future Procedures <thead> Procedure Name Ordered Date Scheduled Date Insert Peripheral IV Access January 29, 2024 11:33a m January 29, 2024 11:32am Cardiac, BP, Pulse Ox Monitor January 29, 2024 11:3 3am January 29, 2024 11:32am Remove Clothing/Place in Gown January 29, 2024 11:3 3am January 29, 2024 11:32am Future Medications Future medication information is unavailable Patient Instructions <tbody> Cast or Splint Care, Adult, Rhar-fn-Jfpz Metacarpal Fracture, Easy-to -Read Otitis Media, Adult, Easy-to -Read Hypertension, Adult, Easy-to -Read Earache, Adult COVID-19 COVID-19 Frequently Asked Qu estions COVID-19 COVID-19: How to Protect You rself and Others - [facility] COVID-19: What to Do If You Are Sick- [facility] (12/12/2020) Bleeding Precautions When on Anticoagulant Therapy, Adult Shingles, Erxj-zq-Wdmp Fall Prevention in the Home, Adult, Vimk-ft-Egbw Contusion, Upjl-rt-Dtis Abrasion [facility] [id number] 14:37:21 Patient Care Team <thead> Team Status: Active Member Role Status Dates CASTRO THORNTON MD primary care physician Active ANGIE STRATTON NP Attending Provider Active ARIANNA GARCIA MD Emergency Provider Active ROSY FOWLER Next of Kin Active ROSY FOWLER Emergency Contact Active AMY NAVARRO Guarantor Active [facility] [id number] 14:37:21 Future Tests Future scheduled test information is unavailable Pending Tests Pending diagnostic test information is unavailable Future Visits Future appointment information is unavailable Referrals to Other Providers <thead> Reason for Referral Referral Start Date Provider Provider Contact Information Provider Address NO PHYSICIAN NO PHYSICIAN CASTRO THORNTON MD Work Phone: [facility] CASTR[facility] [address] [place] [address] CASTRO THORNTON MD Work Phone: [facility] CASTR[facility]man [address] [place] [address] CASTRO THORNTON MD Work Phone: [facility] CASTR[facility]man [address] [place] [address] CASTRO THORNTON MD Work Phone: [facility] CASTRO Thurman [address] [place] [address] NO PHYSICIAN NO PHYSICIAN NO PHYSICIAN NO PHYSICIAN NO PHYSICIAN Future Procedures <thead> Procedure Name Ordered Date Scheduled Date Insert Peripheral IV Access January 29, 2024 11:33a m January 29, 2024 11:32am Cardiac, BP, Pulse Ox Monitor January 29, 2024 11:3 3am January 29, 2024 11:32am Remove Clothing/Place in Gown January 29, 2024 11:3 3am January 29, 2024 11:32am Future Medications Future medication information is unavailable Patient Instructions <tbody> Cast or Splint Care, Adult, Ihop-eb-Ugdf Metacarpal Fracture, Easy-to -Read Otitis Media, Adult, Easy-to -Read Hypertension, Adult, Easy-to -Read Earache, Adult COVID-19 COVID-19 Frequently Asked Qu estions COVID-19 COVID-19: How to Protect You rself and Others - [facility] COVID-19: What to Do If You Are Sick- [facility] (12/12/2020) Bleeding Precautions When on Anticoagulant Therapy, Adult Shingles, Ybca-ge-Yyod Abrasion [facility]2022-10-07 14:26:00* EXAM: XR CHEST 1 VIEW DATE: 07/04/2022 11:49 INDICATION: - Mass, Post Lung Biopsy Procedure COMPARISON: Same day at 12:46 PM TECHNIQUE: AP chest IMPRESSION: Multiple bilateral pulmonary nodules are reidentified. Low lung volumes with subsegmental atelectasis and bronchovascular crowding. No pleural effusion. No pneumothorax in this portable radiograph. Stable cardiomediastinal silhouette. Regional skeleton is unchanged. Right upper quadrant surgical clips. [facility]2022-10-07 13:19:41* EXAM: XR CHEST 1 VIEW DATE: 07/04/2022 11:49 INDICATION: - Mass, Post Lung Biopsy Procedure COMPARISON: Procedural CT chest from the same day and CT chest from 07/02/2022 TECHNIQUE: AP chest IMPRESSION: Multiple bilateral pulmonary nodules are reidentified. Low lung volumes with subsegmental atelectasis and bronchovascular crowding. No pleural effusion. No pneumothorax in this portable radiograph. Stable cardiomediastinal silhouette. Regional skeleton is unchanged. Right upper quadrant surgical clips. [facility]2022-10-07 10:00:00* PROCEDURE: CT-guided biopsy Attending physician(s): Azucena Reeves MD Fellow/resident physician(s): None Pre-procedure diagnosis: Lung nodule Post-procedure diagnosis: Same Clinical indication: Histopathologic diagnosis Additional relevant history: Recent abdominal CT findings suspicious for uterine malignancy. PROCEDURE SUMMARY: 1. Focused CT of the chest. 2. Percutaneous CT-guided coaxial core needle biopsy. FINDINGS/IMPRESSION: Successful needle biopsy of left upper lobe lung nodule. PLAN: Follow pathology results from biopsy. IR follow-up as needed. PROCEDURE DESCRIPTION The benefits, risks, and alternatives to the procedure and sedation were fully discussed and informed consent was obtained. Pre-procedure assessment was performed, which documented that the patient was an appropriate candidate for moderate sedation. All vital signs were monitored and recorded by nursing staff present during the entire procedure. Total intra-service time was 30 minutes. The patient was brought into the interventional suite and a pre-procedure time-out was performed. During the time-out, the patient's name, medical record number, site of procedure, and type of procedure were verified. The patient was placed in the prone position on the procedure table. The anticipated puncture site was prepped and draped in the usual sterile fashion and maximum sterile barrier precautions were maintained throughout the procedure. BIOPSY Initial imaging was performed using noncontrast CT. An appropriate percutaneous trajectory was determined for the biopsy target. Local anesthesia was administered. Under CT imaging guidance, a coaxial introducer needle was carefully advanced to the left upper lobe lung nodule, and a core needle biopsy device was advanced through the introducer to obtain target biopsies. Pathology was available for on-site interpretation to determine adequacy of sample. Core needle biopsy device: [id number] Coaxial needle size: 17 gauge Core needle size: 18 gauge Number of core specimens: 5 On-site biopsy touch preparation: Yes Additional sampling recommendations: None Preliminary assessment of sample adequacy: Adequate The introducer was removed from the patient and a sterile dressing was placed over the access site for hemostasis. Post-procedure CT was performed, demonstrating: Adjacent opacities to the targeted left upper lobe lung nodule, likely patient representative of small pulmonary hemorrhage. No pneumothorax identified. The patient tolerated the procedure well and was discharged from the interventional suite in stable condition. Complications: Small parenchymal hemorrhage. Estimated blood loss (mL): Less than 10 Contrast Please refer to technologist documentation / MAR. Radiation Dose CT dose length product (mGy-cm): 1358 Attestation Signer name: Azucena Reeves MD I attest that I was present for the entire procedure. I reviewed the stored images and agree with the report as written. [facility]2022-10-05 09:35:00* EXAM: CT CHEST WITH CONTRAST DATE: 07/02/2022 7:57 INDICATION: - Pulmonary nodules. Concern for metastases TECHNIQUE: Volumetric CT acquisition of the chest, following intravenous contrast. Axial, sagittal and coronal reconstructions. MIP Images were performed. IV Contrast and DLP: Please refer to radiologic technologist report. COMPARISON: No images to compare FINDINGS: Lower Neck: The visible portions or the lower neck and thyroid are unremarkable. Heart, mediastinum and great Vessels: Heart size is normal and there is no pericardial effusion. Measurements of the pulmonary trunk and thoracic aorta within normal limits. Punctate LAD coronary atherosclerotic calcifications. No intrathoracic lymphadenopathy by pathologic CT size criteria. Airways, Lungs and Pleura: Airways are patent. Innumerable bilateral pulmonary nodules measuring between 2 and 9 mm are seen. In addition there are persistent patchy nonspecific bilateral groundglass opacities. No pleural effusion or pneumothorax. Bones and Soft Tissues: Unremarkable. Upper abdomen: Please refer to CT abdomen from 07/01/2022 for concomitant infradiaphragmatic findings. IMPRESSION: 1. Innumerable bilateral pulmonary nodules measuring between 2 and 9 mm concerning for metastatic disease. 2. Nonspecific patchy bilateral lower lobe predominant groundglass opacities which could represent a combination of subsegmental atelectasis versus postinflammatory changes. 3. Punctate LAD coronary atherosclerotic calcifications. 4. Please refer to CT abdomen from 07/01/2022 for concomitant infradiaphragmatic findings. [facility]2022-10-05 01:09:13* EXAM: CT ABDOMEN AND PELVIS WITH CONTRAST DATE: 07/02/2022 1:05 INDICATION: - Outside films/Pain ADDITIONAL INFORMATION: 52-year-old female with diabetes, hypertension, prior bilateral tubal ligation presented to outside hospital with lower back/abdominal pain transferred for higher level of care due to suspicion for uterine malignancy. COMPARISON: Same day outside pelvic ultrasound TECHNIQUE: Outside hospital abdomen and pelvis with IV contrast was performed on 07/01/2022 and submitted for second interpretation. The outside hospital radiologist's report was available. FINDINGS: Building Performance Consultant: Noncontributory. Lines, tubes and hardware: None. Lower thorax: Innumerable pulmonary nodules visualized within the bilateral lung woods of varying sizes with the largest measuring 1.2 x 1.2 cm mild to moderate bilateral dependent atelectasis, left greater than right. Liver: No hepatomegaly. No focal lesion is identified. The liver appears diffusely low in attenuation in keeping with hepatic steatosis. Biliary tree: No intra- or extrahepatic bile duct dilation. Gallbladder: The gallbladder is surgically absent. Surgical clips are present within the gallbladder fossa. Pancreas: Normal. Spleen: Normal. Adrenals: Normal. Kidneys and ureters: Homogenous enhancement in the bilateral kidneys. No hydroureteronephrosis is identified. No obstructive calculi are identified. Uterus appear normal bilaterally. Bladder: Normal. Reproductive organs: Enlarged and irregular uterus with heterogeneous contrast enhancement. The endometrium is ill-defined. A 4.5 x 4.8 x 4.4 cm heterogenous multiloculated mass is present within the inferior aspect of the uterine fundus. There is a 2.8 x 2.5 x 2.0 cm hypodensity within the left posterior myometrium, likely representing fibroid. The bilateral ovaries appear hyperenhancing, right greater than left. There is dilation of the right gonadal vein with partially occlusive thrombus extending from series 2 image 66-80. Gastrointestinal tract: Lower esophagus: Normal. Stomach: The stomach appears collapsed.. Small bowel: Normal. Colon: Normal. Appendix: Not seen. No inflammation. Peritoneum, mesentery and retroperitoneum: No free air, ascites or loculated fluid. Lymph nodes: No enlarged lymph nodes are identified. Vasculature: Aorta and branches: Vascular calcifications. IVC and veins: Dilation of the right gonadal vein with partially occlusive thrombus as described above. Portal and mesenteric vasculature: Normal. Bones: No acute abnormality. Soft tissues: Normal. IMPRESSION: 1. Heterogenous, enhancing, multilocular mass measuring 4.5 x 4.8 x 4.4 cm within the inferior aspect of the fundus of concern for neoplasm versus calcified fibroid. The uterus is heterogeneously enlarged also and of concern for calcifications within fibroids or enhancement from a neoplastic process. 2. Hyperenhancement of the bilateral ovaries. 3. Dilation of the right gonadal vein with partially occlusive thrombus as described above. 4. Diffuse bilateral pulmonary nodules, suspicious for metastatic disease. 5. Hepatic steatosis. [facility]
[2025-02-17] MEDS ORDERED: ASPIRIN 81 MG CHEWABLE TABLET ONE (14:35)
[2025-02-17 14:48] LABS: Absolute Eosinophils 0.2 K/uL (0-0.5); Absolute Lymphocytes (CBC) 2.6 K/uL (0.7-4.9); Absolute Monocytes 0.3 K/uL (0.1-1.3); Absolute Neutrophil 3.1 K/uL (1.8-8.0); Basophils % 0.8 % (0-1.3); Eosinophils % 3.6 % (0-4.4); Hematocrit 41.2 % (36.0-45.0); Hemoglobin 13.6 g/dL (12.0-15.0); Lymphocytes % 41.5 % (15.3-44.8); MCH 27.9 pg (27.0-35.0); MCV 84.5 fL (80-100); MPV 7.5 fL (7.6-11.3); Monocytes % 5.4 % (3.3-12.3); Neutrophils % 48.7 % (41.7-73.7); Nucleated Red Blood Cells % 0.2 % (0-0); Platelets 294 thou/uL (152-406); RBC Red Blood Cell Count 4.88 M/uL (3.86-4.86); Red Cell Distribution Width 15.3 % (12.1-15.2)
[2025-02-17 14:55] LABS: PT Prothrombin Time 11.4 SECONDS (10-13.0)
[2025-02-17 15:09] LABS: ALT/SGPT 33 U/L (13-56); AST/SGOT 20 U/L (15-37); Albumin 3.7 g/dL (3.4-5.0); Albumin/Globulin Ratio 0.9 (1.1-1.8); Alkaline Phosphatase 180 U/L (45-117); Anion Gap 14.8 mEq/L (5.0-15.0); BUN Blood Urea Nitrogen 22 mg/dL (7-18); Bicarbonate 24 mEq/L (21-32); Bilirubin Total 0.4 mg/dL (0.2-1.0); Globulin 4.3 g/dL (2.3-3.5); Glomerular Filtration Rate 67 ml/min (=/>90); Glucose Level 209 mg/dL (74-106); Magnesium 2.4 mg/dL (1.6-2.4); NT PRO-BNP 278 pg/mL (<125); Potassium 3.8 mEq/L (3.5-5.1); Sodium Level 135 mEq/L (136-145); Troponin High Sensitivity 4.6 pg/mL (<58.9)
--- NOTE | 2025-02-17 15:09 | RAD REPORT ---
EXAMINATION: ONE VIEW CHEST XR CLINICAL INDICATION: CHEST PAIN TECHNIQUE: Frontal chest projection is submitted. Examination is limited by patient positioning and t echnique. COMPARISON: 01/06/2024 FINDINGS: The lungs are underinflated resulting vascular crowding. The heart is upper limit of normal in size. No displaced fractures identified. IMPRESSION: No acute intrathoracic abnormalities.
[2025-02-17 15:10] LABS: Bilirubin Direct < 0.2 mg/dL (0-0.2); Bilirubin Indirect, Calculated 0.2 mg/dL (0.2-0.8)
--- NOTE | 2025-02-17 16:34 | RAD REPORT ---
EXAMINATION: CTA CHEST PE CLINICAL INDICATION: CHEST PAIN TECHNIQUE: This examination was performed according to an angiographic protocol with 3D post-processi ng. This involves 3D reconstructions, MIPs, volume rendered images and/or shaded surface rendering. One or more of the following dose reduction techniques were used: Automated exposure control, adjustm ent of the mA and/or kV according to patient size, and/or iterative reconstruction. Unless otherwise specified, incidental findings do not require dedicated imaging follow-up. COMPARISON: No prior exam. FINDINGS: PULMONARY ARTERIES: Normal caliber. No evidence of pulmonary emboli to the subsegmental level. THORACIC AORTA: Normal caliber and configuration. LUNGS: Multiple varying size pulmonary nodules are present bilaterally, largest in the medial superio r segment right lower lobe measuring 18 mm. PLEURA: No pleural effusion. No pneumothorax. MEDIASTINUM AND LYMPH NODES: No mediastinal mass or fluid collection. Normal size mediastinal, hilar, and axillary lymph nodes. OSSEOUS STRUCTURES AND CHEST WALL: Intact. UPPER ABDOMEN: No significant abnormalities. IMPRESSION: No evidence of pulmonary emboli to the subsegmental level. Multiple varying size pulmonary nodules are present as detailed, worrisome for possible metastatic di sease. Recommend PET/CT follow-up assessment. Nonemergent pulmonology consultation also suggested.
[2025-02-17] MEDS ORDERED: NITROGLYCERIN 0.4 MG/TAB SL ONE (16:43)
[2025-02-17] MEDS ORDERED: NA CHLORIDE 0.9% 1,000 ML ONE (16:53)
--- NOTE | 2025-02-17 17:45 | ER ---
Nurse's Notes [facility] Name: Tanya Bradford Age: 55 yrs Sex: Female : 1970 Arrival Date: 02/17/2025 Time: 14:14 Bed 3 Private MD: Diagnosis: Chest pain, unspecified;Bilateral pulmonary nodules Presentation: 02/17 14:23 Chief complaint: Patient states: RT CHEST PAIN THAT RADIATES TO RT ARM AND SOB X2 DAYS. dd2 REPORTS WENT TO ER IN [place] AND REPORTS WAS ADVISED BY MD TO COME HERE. Coronavirus screen: At this time, the client does not indicate any symptoms associated with coronavirus-19. Ebola Screen: No symptoms or risks identified at this time. 14:23 Method Of Arrival: Ambulatory dd2 14:23 Initial Sepsis Screen: Does the patient meet any 2 criteria? No. Patient's initial dd2 sepsis screen is negative. Does the patient have a suspected source of infection? No. Patient's initial sepsis screen is negative. Risk Assessment: Do you want to hurt yourself or someone else? Patient reports no desire to harm self or others. Onset of symptoms was February 15, 2025. 14:23 Acuity: NAMRATA 2 dd2 Triage Assessment: 14:28 General: Appears uncomfortable, Behavior is calm, cooperative, appropriate for age. dd2 Pain: Complains of pain in anterior aspect of right upper chest Pain radiates to right arm. Respiratory: Reports shortness of breath at rest on exertion Airway is patent Respiratory effort is even, unlabored, Respiratory pattern is regular, symmetrical, Onset: The symptoms/episode began/occurred at an unknown time. the patient has mild shortness of breath. 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 - Infectious Disease History:: Denies. - Social history:: Smoking status: Patient denies any tobacco usage or history of. Screenin:03 [facility] ED Fall Risk Assessment (Adult) History of falling in the last 3 months, iw including since admission No falls in past 3 months (0 pts) Confusion or Disorientation No (0 pts) Intoxicated or Sedated No (0 pts) Impaired Gait No (0 pts) Mobility Assist Device Used No (0 pt) Altered Elimination No (0 pt) Score/Fall Risk Level 0 - 2 = Low Risk Oriented to surroundings, Maintained a safe environment. Abuse screen: Denies threats or abuse. Nutritional screening: No deficits noted. Tuberculosis screening: No symptoms or risk factors identified. Assessment: 14:30 General: Appears in no apparent distress. Behavior is calm, cooperative. Pain: iw Complains of pain in anterior aspect of right upper chest Pain radiates to right arm Pain began 2-3 days ago. Neuro: Level of Consciousness is awake, alert, obeys commands, Oriented to person, place, time, situation, Moves all extremities. Full function. Cardiovascular: Rhythm is regular. Respiratory: Reports shortness of breath at rest Respiratory effort is even, unlabored, Breath sounds are clear bilaterally. Derm: Skin is intact, is healthy with good turgor. Musculoskeletal: Range of motion: intact in all extremities. 17:00 Reassessment: Patient appears in no apparent distress at this time. pt appears to be iw sleeping , awakens easily to verbal stimuli, repeat trop sent to lab, fluids started. Vital Signs: 14:23 BP 128 / 90; Pulse 90; Resp 18; Temp 98.3; Pulse Ox 98% ; Weight 67.13 kg; Height 5 ft. dd2 2 in. ; Pain 7/10; 17:00 BP 94 / 53; Pulse 74; Resp 16; Pulse Ox 98% on R/A; iw 17:31 BP 119 / 68; Pulse 77; Resp 16; Pulse Ox 97% on R/A; iw 14:23 Body Mass Index 27.07 (67.13 kg, 157.48 cm) dd2 14:23 Pain Scale: Adult dd2 ED Course: 14:15 Patient arrived in ED. cj3 14:16 Richa Mendoza PA-C is PHCP. sb4 14:16 Faraz Gross MD is Attending Physician. sb4 14:23 Nesha Cruz, RN is Primary Nurse. iw 14:23 Arm band placed on right wrist. dd2 14:28 Triage completed. dd2 14:29 EKG done, by ED staff, reviewed by Richa Mendoza PA-C. em1 15:04 Patient has correct armband on for positive identification. Client placed on continuous iw cardiac and pulse oximetry monitoring. NIBP monitoring applied. printer slotter helper on. 15:06 XRAY Chest (1 view) In Process Unspecified. EDMS 15:30 Initial lab(s) drawn, by ED staff, sent to lab. Inserted saline lock: 22 gauge in right iw forearm, using aseptic technique. Blood collected. Flushed with 10 mL NS. 16:09 Chest For PE Angio CT In Process Unspecified. EDMS 17:43 Modesto Ramirez MD is Referral Physician. sb4 18:20 No provider procedures requiring assistance completed. IV discontinued, intact, kc6 bleeding controlled, No redness/swelling at site. Pressure dressing applied. Patient maintains SpO2 saturation greater than 95% on room air. Administered Medications: 14:39 Drug: Aspirin PO Chewable Tablet 162 mg PO once Route: PO; iw 18:20 Follow up: Response: No adverse reaction kc6 17:01 Not Given (Hemodynamic Parameters): nitroglycerin0.4 mg Sublingual once sb4 17:17 Drug: NS 0.9% IV 1000 ml IV at 1 bolus Per protocol; to be given as a bolus over 60 iw minutes Route: IV; Rate: 1 bolus; Site: right forearm; 18:20 Follow up: Response: No adverse reaction; IV Status: Completed infusion; IV Intake: kc6 1000ml Medication: 18:20 VIS not applicable for this client. kc6 Intake: 18:20 IV: 1000ml; Total: 1000ml. kc6 Outcome: 17:44 Discharge ordered by . sb4 18:20 Discharged to home ambulatory, kc6 18:20 Condition: improved 18:20 Discharge instructions given to patient, Instructed on discharge instructions, follow up and referral plans. Demonstrated understanding of instructions, follow-up care, 18:20 Patient left the ED. kc6 Signatures: Dispatcher [employer] EDCT Nesha Cruz, RASTA MAGDALENO iw Ulices Baptiste em1 Cee Hawthorne, RN RN kc6 Richa Mendoza PA-C PASolaC sb4 BLAIR NORTON RN RN dd2 Kellen Man cj3
--- NOTE | 2025-02-17 17:45 | EDPHYS ---
Physician Documentation [facility] Name: Tanya Bradford Age: 55 yrs Sex: Female : 1970 Arrival Date: 02/17/2025 Time: 14:14 Bed 3 Private MD: ED Physician Faraz Gross HPI: 02/17 14:30 This 55 yrs old Female presents to ER via Ambulatory with complaints of sb4 Shortness Of Breath, Chest Pain. 14:30 Patient reports right-sided chest pain that radiates down her right arm associated with sb4 shortness of breath x 2 days now. States that she went to [facility] last night, had a full cardiac workup done including a CTA of her chest and was told it was all negative except for some nodules in her right. States that her pain has persisted and wants a second opinion. Does report a medical history of coronary artery disease, hypertension, and type 2 diabetes in which she reports compliance with all of her medications. Had a cardiac catheterization done about a year ago with subsequent stent placed. 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 Mendez. 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 - Infectious Disease History:: Denies. - Social history:: Smoking status: Patient denies any tobacco usage or history of. ROS: 14:30 Constitutional: Negative for fever, chills, and weight loss, sb4 14:30 Cardiovascular: Positive for chest pain, 14:30 Respiratory: Positive for shortness of breath, 14:30 All other systems are negative, Exam: 14:30 Constitutional: This is a well developed, well nourished patient who is awake, alert, sb4 and in no acute distress. Head/Face: Normocephalic, atraumatic. Eyes: Extra-ocular motions intact. Periorbital areas with no swelling, redness, or edema. ENT: Mucous membranes moist. Cardiovascular: Regular rate and rhythm with a normal S1 and S2. Respiratory: No increased work of breathing, no retractions or nasal flaring. Abdomen/GI: Soft, non-tender, no distension. Skin: Warm, dry with normal turgor. Normal color with no rashes, no lesions, and no evidence of cellulitis. MS/ Extremity: Pulses equal, no cyanosis. Neurovascular intact. Full, normal range of motion. Neuro: Awake and alert, GCS 15, oriented to person, place, time, and situation. Motor strength 5/5 in all extremities. Sensory grossly intact. Vital Signs: 14:23 BP 128 / 90; Pulse 90; Resp 18; Temp 98.3; Pulse Ox 98% ; Weight 67.13 kg; Height 5 ft. dd2 2 in. ; Pain 7/10; 17:00 BP 94 / 53; Pulse 74; Resp 16; Pulse Ox 98% on R/A; iw 17:31 BP 119 / 68; Pulse 77; Resp 16; Pulse Ox 97% on R/A; iw 14:23 Body Mass Index 27.07 (67.13 kg, 157.48 cm) dd2 14:23 Pain Scale: Adult dd2 MDM: 14:17 Medical Screening Exam initiated sb4 17:43 Data reviewed: vital signs, nurses notes, lab test result(s), EKG, radiologic studies, sb4 and as a result, I will discharge patient. Care significantly affected by the following chronic conditions: Diabetes, Hypertension. Counseling: I had a detailed discussion with the patient and/or guardian regarding the historical points, exam findings, and any diagnostic results supporting the discharge/admit diagnosis, lab results, radiology results, the need for outpatient follow up, for definitive care, a pot liner, to return to the emergency department if symptoms worsen or persist or if there are any questions or concerns that arise at home. Special discussion: Based on the patient's history, exam, and Dx evaluation, there is no indication for emergent intervention or inpatient Tx. It is understood by the patient/guardian that if the Sx's persist or worsen they need to return immediately for re-evaluation. I discussed with the patient the need to follow-up with the PCP/specialist for the noted incidental finding on X-ray/CT scanning. 02/17 14:27 Order name: Basic Metabolic Panel; Complete Time: 15:11 sb4 02/17 14:27 Order name: CBC with Diff; Complete Time: 14:58 sb4 02/17 14:27 Order name: LFT's; Complete Time: 15:11 sb4 02/17 14:27 Order name: Magnesium; Complete Time: 15:11 sb4 02/17 14:27 Order name: NT PRO-BNP; Complete Time: 15:11 sb4 02/17 14:27 Order name: PT-INR; Complete Time: 14:57 sb4 02/17 14:27 Order name: Troponin HS; Complete Time: 15:11 sb4 02/17 16:09 Order name: Troponin High Sensitivity; Complete Time: 17:39 sb4 02/17 14:27 Order name: XRAY Chest (1 view); Complete Time: 15:11 sb4 02/17 15:11 Order name: Chest For PE Angio CT; Complete Time: 16:39 sb4 02/17 14:27 Order name: Cardiac monitoring; Complete Time: 14:29 sb4 02/17 14:27 Order name: EKG - Nurse/Tech; Complete Time: 14:29 sb4 02/17 14:27 Order name: IV Saline Lock; Complete Time: 14:41 sb4 02/17 14:27 Order name: Labs collected and sent; Complete Time: 14:41 sb4 02/17 14:27 Order name: O2 Per Protocol; Complete Time: 14:41 sb4 02/17 14:27 Order name: O2 Sat Monitoring; Complete Time: 14:41 sb4 EC:29 Rate is 81 beats/min. Rhythm is regular, Normal Sinus Rhythm. SD interval is normal at sb4 126 msec. QRS interval is normal at 74 msec. QT interval is normal at 384 msec. No Q waves. T waves are Normal. Clinical impression: No evidence of ischemia. Interpreted by me. Reviewed by me. Administered Medications: 14:39 Drug: Aspirin PO Chewable Tablet 162 mg PO once Route: PO; iw 18:20 Follow up: Response: No adverse reaction kc 17:01 Not Given (Hemodynamic Parameters): nitroglycerin0.4 mg Sublingual once sb4 17:17 Drug: NS 0.9% IV 1000 ml IV at 1 bolus Per protocol; to be given as a bolus over 60 iw minutes Route: IV; Rate: 1 bolus; Site: right forearm; 18:20 Follow up: Response: No adverse reaction; IV Status: Completed infusion; IV Intake: kc6 1000ml Disposition Summary: 02/17/25 17:44 Discharge Ordered Notes: Location: Home sb4 Problem: an ongoing problem sb4 Symptoms: have improved sb4 Condition: Stable sb4 Diagnosis - Chest pain, unspecified sb4 - Bilateral pulmonary nodules sb4 Followup: sb4 - With: Modesto Ramirez MD - When: 2 - 3 days - Reason: Recheck today's complaints, Re-evaluation by your physician Discharge Instructions: - Discharge Summary Sheet sb4 - Nonspecific Chest Pain, Adult, [id number] sb4 - Pulmonary Nodule, [id number] sb4 Forms: - Patient Portal Instructions sb4 - Leadership Thank You Letter sb4 Addendum: 02/20/2025 12:32 Co-signature as Attending Physician, Faraz Gross MD I agree with the assessment and c crenhsaw plan of care. Signatures: Dispatcher [employer] Faraz Gonzalez MD MD cha Williams, Irene, RN RN Richa Juan PA-C PA-C sb4 BLAIR NORTON RN RN dd2 Cee Hawthorne RN kc6 Corrections: (The following items were deleted from the chart) 02/17 14:28 14:28 BASIC METABOLIC PANEL+C.LAB.BRZ ordered. EDMS EDMS 14:28 14:28 CBC+H.LAB.BRZ ordered. EDMS EDMS 14:28 14:28 HEPATIC FUNCTION+C.LAB.BRZ ordered. EDMS EDMS 14:28 14:28 MAGNESIUM+C.LAB.BRZ ordered. EDMS EDMS 14:28 14:28 PROBNP+C.LAB.BRZ ordered. EDMS EDMS 14:28 14:28 PROTIME (+INR)+COAG.LAB.BRZ ordered. EDMS EDMS 14:28 14:28 Troponin High Sensitivity+C.LAB.BRZ ordered. EDMS EDMS 14:28 14:28 Chest Single View+RAD.RAD.BRZ ordered. EDMS EDMS
[2025-02-17 18:46] VITALS: BP 119/68; O2SAT 97
[2025-02-17 18:49] VITALS: TEMP 98
--- NOTE | 2025-02-21 12:31 | EKG ---
Test Date: 2025-02-17 Test Time: 14:24:40 Technician [employer] Equipment: [employer] MEASUREMENT RESULTS: Intervals: Rate: 81 MT: 126 QRSD: 74 QT: 384 QTc: 446 [place]: P: 79 MT: 126 QRS: 88 T: 33 INTERPRETIVE STATEMENTS: Normal sinus rhythm with sinus arrhythmia Cannot rule out Anterior infarct, age undetermined Abnormal ECG Compared to ECG 01/06/2024 09:52:38 Myocardial infarct finding now present Electronically Signed On 02-21-25 12:23:54 CDT by Dawood Norris
== END 2025-02-17 18:20 | disposition home or self-care (01) ==
LOC: ER 14:14
DX: R91.8 Other nonspecific abnormal finding of lung field (principal)
CPT/HCPCS: 36415; 71045; 71275; 80048; 80076; 83735; 83880; 84484; 85025; 85610; 93005; 96360; 99285; J7030; Q9967